=== PATIENT | female | born 1995 | race Caucasian/White ===

== ENCOUNTER → 2018-12-10 | Outpatient (CLI) | payer BC | END | disposition home or self-care (01) | LOC: MERGE 07:58 → LABWHC1 07:58 | PROVIDERS: ATTEND Obstetrics & Gynecology Reproductive Endocrinology | DX: Z32.00 Encounter for pregnancy test, result unknown (principal) | CPT/HCPCS: 36415; 84702 ==

== ENCOUNTER → 2019-01-10 | Outpatient (CLI) | payer BC | END | disposition home or self-care (01) | LOC: LABWHC1 07:26 | PROVIDERS: ATTEND Obstetrics & Gynecology Reproductive Endocrinology | DX: N97.9 Female infertility, unspecified (principal) | CPT/HCPCS: 36415; 84144 ==

== ENCOUNTER → 2019-01-17 | Outpatient (CLI) | payer BC | END | disposition home or self-care (01) | LOC: LABWHC1 07:50 | PROVIDERS: ATTEND Obstetrics & Gynecology Reproductive Endocrinology | DX: Z32.00 Encounter for pregnancy test, result unknown (principal) | CPT/HCPCS: 36415; 84702 ==

== ENCOUNTER → 2019-02-05 | Outpatient (CLI) | payer BC | END | disposition home or self-care (01) | LOC: LABWHC1 08:40 | PROVIDERS: ATTEND Obstetrics & Gynecology Reproductive Endocrinology | DX: N97.9 Female infertility, unspecified (principal) | CPT/HCPCS: 36415; 84144 ==

== ENCOUNTER → 2019-02-12 | Outpatient (CLI) | payer BC | END | disposition home or self-care (01) | LOC: LABWHC1 08:43 | PROVIDERS: ATTEND Obstetrics & Gynecology Reproductive Endocrinology | DX: Z32.00 Encounter for pregnancy test, result unknown (principal) | CPT/HCPCS: 36415; 84702 ==

== ENCOUNTER → 2019-04-04 | Outpatient (CLI) | payer BC | END | disposition home or self-care (01) | LOC: LABWHC1 11:02 | PROVIDERS: ATTEND Obstetrics & Gynecology Reproductive Endocrinology | DX: Z32.00 Encounter for pregnancy test, result unknown (principal) | CPT/HCPCS: 36415; 84702 ==

== ENCOUNTER → 2019-05-05 | Outpatient (CLI) | payer BC | END | disposition home or self-care (01) | LOC: LABWHC1 11:18 | PROVIDERS: ATTEND Obstetrics & Gynecology Reproductive Endocrinology | DX: N97.9 Female infertility, unspecified (principal) | CPT/HCPCS: 36415; 84144 ==

== ENCOUNTER → 2019-05-12 | Outpatient (CLI) | payer BC | END | disposition home or self-care (01) | LOC: LABWHC1 13:10 | PROVIDERS: ATTEND Obstetrics & Gynecology Reproductive Endocrinology | DX: Z32.00 Encounter for pregnancy test, result unknown (principal) | CPT/HCPCS: 36415; 84702 ==

== ENCOUNTER → 2019-06-15 | Outpatient (CLI) | payer BC | END | disposition home or self-care (01) | LOC: LABWHC1 13:57 | PROVIDERS: ATTEND Obstetrics & Gynecology Reproductive Endocrinology | DX: Z32.00 Encounter for pregnancy test, result unknown (principal) | CPT/HCPCS: 36415; 84702 ==

== ENCOUNTER → 2019-07-05 | Outpatient (CLI) | payer BC | END | disposition home or self-care (01) | LOC: LABWHC1 09:50 | PROVIDERS: ATTEND Obstetrics & Gynecology Reproductive Endocrinology | DX: Z32.00 Encounter for pregnancy test, result unknown (principal) | CPT/HCPCS: 36415; 84702 ==

== ENCOUNTER → 2019-07-27 | Outpatient (CLI) | payer BC | END | disposition home or self-care (01) | LOC: LABWHC1 15:07 | PROVIDERS: ATTEND Obstetrics & Gynecology Reproductive Endocrinology | DX: N97.9 Female infertility, unspecified (principal) | CPT/HCPCS: 36415; 84144 ==

== ENCOUNTER → 2019-08-03 | Outpatient (CLI) | payer BC | END | disposition home or self-care (01) | LOC: LABWHC1 12:00 | PROVIDERS: ATTEND Obstetrics & Gynecology Reproductive Endocrinology | DX: Z32.00 Encounter for pregnancy test, result unknown (principal) | CPT/HCPCS: 36415; 84702 ==

== ENCOUNTER → 2019-08-26 | Outpatient (CLI) | payer BC | END | disposition home or self-care (01) | LOC: LABWHC1 11:39 | PROVIDERS: ATTEND Obstetrics & Gynecology Reproductive Endocrinology | DX: N97.9 Female infertility, unspecified (principal) | CPT/HCPCS: 36415; 84144 ==

== ENCOUNTER → 2019-09-02 | Outpatient (CLI) | payer BC | END | disposition home or self-care (01) | LOC: LABWHC1 06:54 | PROVIDERS: ATTEND Obstetrics & Gynecology Reproductive Endocrinology | DX: Z32.00 Encounter for pregnancy test, result unknown (principal) | CPT/HCPCS: 36415; 84702 ==

== ENCOUNTER → 2019-10-03 | Outpatient (CLI) | payer BC | END | disposition home or self-care (01) | LOC: LABWHC1 12:14 | PROVIDERS: ATTEND Obstetrics & Gynecology Reproductive Endocrinology | DX: Z32.00 Encounter for pregnancy test, result unknown (principal) | CPT/HCPCS: 36415; 84702 ==

== ENCOUNTER → 2019-10-31 | Outpatient (CLI) | payer BC | END | disposition home or self-care (01) | LOC: LABWHC1 14:52 | PROVIDERS: ATTEND Obstetrics & Gynecology Reproductive Endocrinology | DX: N97.9 Female infertility, unspecified (principal) | CPT/HCPCS: 36415; 84144; 84443 ==

== ENCOUNTER → 2019-11-08 | Outpatient (CLI) | payer BC ==
[2019-11-08 08:46] LABS: HCG,Quantitative Serum <2.4 mIU/mL
== END | disposition home or self-care (01) ==
LOC: LABWHC1 07:52
PROVIDERS: ATTEND Obstetrics & Gynecology Reproductive Endocrinology
DX: Z32.00 Encounter for pregnancy test, result unknown (principal); N92.6 Irregular menstruation, unspecified
CPT/HCPCS: 36415; 84146; 84443; 84702

== ENCOUNTER → 2019-12-07 | Outpatient (CLI) | payer BC | END | disposition home or self-care (01) | LOC: LABWHC1 13:00 | PROVIDERS: ATTEND Obstetrics & Gynecology Reproductive Endocrinology | DX: E03.9 Hypothyroidism, unspecified (principal) | CPT/HCPCS: 36415; 84443 ==

== ENCOUNTER → 2020-01-09 | Outpatient (CLI) | payer BC | END | disposition home or self-care (01) | LOC: LABWHC1 09:57 | PROVIDERS: ATTEND Obstetrics & Gynecology Reproductive Endocrinology | DX: E03.9 Hypothyroidism, unspecified (principal) | CPT/HCPCS: 36415; 84443 ==

== ENCOUNTER → 2020-01-23 | Outpatient (CLI) | payer BC | END | disposition home or self-care (01) | LOC: LABWHC1 09:23 | PROVIDERS: ATTEND Obstetrics & Gynecology Reproductive Endocrinology | DX: E03.9 Hypothyroidism, unspecified (principal) | CPT/HCPCS: 36415; 84443 ==

== ENCOUNTER → 2020-01-30 | Outpatient (CLI) | payer BC | END | disposition home or self-care (01) | LOC: LABWHC1 11:12 | PROVIDERS: ATTEND Obstetrics & Gynecology Reproductive Endocrinology | DX: E03.9 Hypothyroidism, unspecified (principal) | CPT/HCPCS: 36415; 84443 ==

== ENCOUNTER → 2020-03-06 | Outpatient (CLI) | payer BC | END | disposition home or self-care (01) | LOC: LABWHC1 09:31 | PROVIDERS: ATTEND Obstetrics & Gynecology Reproductive Endocrinology | DX: E03.9 Hypothyroidism, unspecified (principal) | CPT/HCPCS: 36415; 84443 ==

== ENCOUNTER → 2020-04-05 | Outpatient (CLI) | payer BC ==
[2020-04-06 01:04] LABS: Thyroid Peroxidase Antibodies 34.4 U/mL (0.0-60.0)
[2020-04-06 01:05] LABS: Prolactin 11.6 ng/mL (2.8-29.2)
== END | disposition home or self-care (01) ==
LOC: LABWHC1 14:19
PROVIDERS: ATTEND Internal Medicine Endocrinology, Diabetes & Metabolism
DX: E03.8 Other specified hypothyroidism (principal)
CPT/HCPCS: 36415; 84146; 84439; 84443; 84480; 86376

== ENCOUNTER → 2020-05-16 | Outpatient (CLI) | payer BC ==
--- NOTE | 2020-05-16 09:00 | US ---
EXAMINATION TYPE: US thyroid st tissue head/neck DATE OF EXAM: 05/16/2020 COMPARISON: None CLINICAL HISTORY: 25-year-old female E03.8 Other specified hypothyroidism,R94.6 with abnormal labs TECHNIQUE: Multiple sonographic images of the thyroid gland are obtained. FINDINGS: GLAND SIZE: Right Lobe: 4.0 x 1.5 x 1.4 cm Overall Parenchyma: homogenous Left Lobe: 3.9 x 1.2 x 1.0 cm Overall Parenchyma: homogeneous Isthmus Thickness: 0.4 cm NODULES RIGHT: # of nodules measured on right: 0 LEFT: # of nodules measured on left: 0 ISTHMUS: # of nodules measured in the isthmus: 0 Bilateral neck scanned, no evidence of lymphadenopathy. IMPRESSION: Normal homogeneous appearance to the thyroid gland. Measurements as above. No discrete nodule.
== END | disposition home or self-care (01) ==
LOC: RADUSWWP 07:00
PROVIDERS: ATTEND Internal Medicine Endocrinology, Diabetes & Metabolism
DX: E03.8 Other specified hypothyroidism (principal)
CPT/HCPCS: 76536

== ENCOUNTER → 2020-05-16 | Outpatient (CLI) | payer BC ==
--- NOTE | 2020-05-17 14:52 | NM ---
EXAMINATION TYPE: NM thyroid image w uptake DATE OF EXAM: 05/17/2020 COMPARISON: Thyroid ultrasound 05/16/2020 HISTORY: Hypothyroidism TECHNIQUE: Thyroid iodine uptake is calculated and images performed after the oral administration of 302 uCi 1-123 Capsule. FINDINGS: There is normal distribution of activity throughout the gland. The 4 hour iodine uptake is calculated at 11% (normal range 8-14%). The 24-hour iodine uptake is calculated at 22% (normal range 15-35%). IMPRESSION: Normal thyroid scan and uptake.
== END | disposition home or self-care (01) ==
LOC: RADNMMAIN 07:17
PROVIDERS: ATTEND Internal Medicine Endocrinology, Diabetes & Metabolism
DX: R94.6 Abnormal results of thyroid function studies (principal); E03.8 Other specified hypothyroidism
CPT/HCPCS: 78014; A9516

== ENCOUNTER → 2020-06-06 | Outpatient (CLI) | payer BC ==
[2020-06-07 11:42] LABS: T4, Free (Free Thyroxine) 1.1 ng/dL (0.80-1.80)
== END | disposition home or self-care (01) ==
LOC: LABWHC1 14:05
PROVIDERS: ATTEND Internal Medicine Endocrinology, Diabetes & Metabolism
DX: E03.8 Other specified hypothyroidism (principal)
CPT/HCPCS: 36415; 84439; 84443; 84445; 84480

== ENCOUNTER 2020-08-22 10:02 | Emergency (ER) | payer BC ==
[2020-08-22 10:08] VITALS: BP 120/79; PULSE 92; RESP 18; TEMP 97.9
--- NOTE | 2020-08-22 10:21 | ED ---
URI HPI - General Chief Complaint: Upper Respiratory Infection Stated Complaint: cough/sore throat Time Seen by Provider: 08/22/20 10:09 Source: patient Mode of arrival: ambulatory Limitations: no limitations - History of Present Illness Initial Comments: 25-year-old female presented for chief complaint of wanting covid test Patient states she has had a cough at night and sore throat. She states her similar symptoms. Patient states she is concerned of Ildefonso. She denies any chest pain shortness of breath like swelling she denies . She denies working at the health care. Patient denies additional complaints she states she only wants the test remaining review of system negative - Related Data Home Medications Medication Instructions Recorded Confirmed No Known Home Medications 08/22/20 08/22/20 Allergies Allergy/AdvReac Type Severity Reaction Status Date / Time No Known Allergies Allergy Verified 08/22/20 10:21 Review of Systems ROS Statement: Those systems with pertinent positive or pertinent negative responses have been documented in the HPI. ROS Other: All systems not noted in ROS Statement are negative. Past Medical History Past Medical History: No Reported History History of Any Multi-Drug Resistant Organisms: None Reported Past Surgical History: No Surgical Hx Reported Past Psychological History: No Psychological Hx Reported Smoking Status: Never smoker Past Alcohol Use History: None Reported Past Drug Use History: None Reported General Exam - General Exam Comments Initial Comments: General: The patient is awake and alert, in no distress, and does not appear acutely ill. Eye: +3 mm pupils are equal, round and reactive to light, extra-ocular movements are intact. No nystagmus. There is normal conjunctiva bilaterally. No signs of icterus. Ears, nose, mouth and throat: There are moist mucous membranes and no oral lesions. Neck: The neck is supple, there is no tenderness or JVD. Cardiovascular: There is a regular rate and rhythm. No murmur, rub or gallop is appreciated. Respiratory: Lungs are clear to auscultation, respirations are non-labored, breath sounds are equal. No wheezes, stridor, rales, or rhonchi. Musculoskeletal: Normal ROM, no tenderness. Strength 5/5. Sensation intact. Radial pulses equal bilaterally 2+. Neurological: A&O x 3. CN II-XII intact grossly, There are no obvious motor or sensory deficits. Coordination appears grossly intact. Speech is normal. Skin: Skin is warm and dry and no rashes or lesions are noted. Psychiatric: Cooperative, appropriate mood & affect, normal judgment. Limitations: no limitations Course Vital Signs 08/22/20 10:04 Temperature 97.9 F Pulse Rate 92 Respiratory 18 Rate Blood Pressure 120/79 O2 Sat by Pulse 99 Oximetry Medical Decision Making - Medical Decision Making 25yo female presenting for cc of covid testing. admits to cough sore throat. Lungs clear. refused cxr. denies or hx of immunecompromise. Patient is agreeable to care plan and discharge.Dr Jones agreeable to care plan. Disposition Clinical Impression: Cough, Sore throat Disposition: HOME SELF-CARE Condition: Good Instructions (If sedation given, give patient instructions): Upper Respiratory Infection (ED) Additional Instructions: Please use medication as discussed. Please follow-up with family doctor in the next 2 days. Please return to emergency room if the symptoms increase or worsen or for any other concerns. Is patient prescribed a controlled substance at d/c from ED?: No Referrals: Bolivar Leal DO [Primary Care Provider] - 1-2 days Time of Disposition: 10:20
== END 2020-08-22 10:30 | disposition home or self-care (01) ==
LOC: EC 10:02
DX: J02.9 Acute pharyngitis, unspecified (principal); Z20.828 Contact with and (suspected) exposure to other viral communicable diseases
CPT/HCPCS: 99283; U0003

== ENCOUNTER 2021-05-24 04:20 | Observation (INO) | payer BC ==
[2021-05-24] MEDS ORDERED: SODIUM CHLORIDE 0.9% 1,000 ML IV STA ×2 (04:35→05:54)
--- NOTE | 2021-05-24 04:40 | ED ---
Chest Pain HPI - General Chief Complaint: Chest Pain Stated Complaint: Chest Pain Time Seen by Provider: 05/24/21 04:23 Source: patient, RN notes reviewed, old records reviewed Mode of arrival: ambulatory Limitations: no limitations - History of Present Illness Initial Comments: This is a 18-year-old female to the ER for evaluation patient coming in for evaluation of chest pain. Patient does have anterior severe chest pain and tightness with no recent travel history or sick contacts. Patient is up-to-date on her covert vaccine. No recent fevers felt fine yesterday she woke tonight with severe symptoms of elevated heart rate and tightness in her chest. No recent diarrheal illnesses no nausea vomiting. No drugs or alcohol patient is no medical history and takes no medications MD Complaint: chest pain -: minutes(s) Onset: awoke with symptoms Pain Location: substernal, left chest Pain Radiation: none Severity: severe Severity scale (1-10): 9 Quality: tightness, sharp Consistency: constant Improves With: nothing Worsens With: nothing Context: new medications (COVID vaccine) Other Symptoms: rash, palpitations Treatments Prior to Arrival: none - Related Data Home Medications Medication Instructions Recorded Confirmed No Known Home Medications 08/22/20 05/24/21 Allergies Allergy/AdvReac Type Severity Reaction Status Date / Time No Known Allergies Allergy Verified 05/24/21 07:09 Review of Systems ROS Statement: Those systems with pertinent positive or pertinent negative responses have been documented in the HPI. ROS Other: All systems not noted in ROS Statement are negative. EKG Findings - EKG Comments: EKG Findings:: EKG is sinus tachycardia 127 PA 120 QRS 74 QTc 575 Past Medical History Past Medical History: No Reported History History of Any Multi-Drug Resistant Organisms: None Reported Past Surgical History: No Surgical Hx Reported Past Psychological History: No Psychological Hx Reported Smoking Status: Never smoker Past Alcohol Use History: None Reported Past Drug Use History: None Reported General Exam Limitations: no limitations General appearance: alert, in no apparent distress Head exam: Present: atraumatic, normocephalic, normal inspection Eye exam: Present: normal appearance, PERRL, EOMI. Absent: scleral icterus, conjunctival injection, periorbital swelling ENT exam: Present: normal exam, mucous membranes moist Neck exam: Present: normal inspection. Absent: tenderness, meningismus, lymphad enopathy Respiratory exam: Present: normal lung sounds bilaterally. Absent: respiratory distress, wheezes, rales, rhonchi, stridor Cardiovascular Exam: Present: normal rhythm, tachycardia, normal heart sounds. Absent: systolic murmur, diastolic murmur, rubs, gallop, clicks GI/Abdominal exam: Present: soft, normal bowel sounds. Absent: distended, tenderness, guarding, rebound, rigid Extremities exam: Present: normal inspection, full ROM, normal capillary refill. Absent: tenderness, pedal edema, joint swelling, calf tenderness Back exam: Present: normal inspection Neurological exam: Present: alert, oriented X3, CN II-XII intact Psychiatric exam: Present: normal affect, normal mood Skin exam: Present: warm, dry, intact, normal color. Absent: rash Course Vital Signs 05/24/21 05/24/21 05/24/21 04:25 04:38 05:11 Temperature 98.3 F Pulse Rate 134 H 125 H Pulse Rate [ 120 H Shear Operator Automatic ] Respiratory 18 18 Rate Blood Pressure 130/80 124/81 O2 Sat by Pulse 98 98 Oximetry 05/24/21 06:05 Temperature Pulse Rate 117 H Pulse Rate [ Shear Operator Automatic ] Respiratory 18 Rate Blood Pressure 115/74 O2 Sat by Pulse 100 Oximetry - Reevaluation(s) Reevaluation #1: 05/24/21 04:44 Medical record is reviewed Reevaluation #2: 05/25/21 Patient symptoms are improved here in the emergency department Patient informed of results and questions answered Patient is in no acute distress Reevaluation #3: 05/25/21 Patient's QTc is do improve here in the emergency department heart rate - Consultations Consultation #1: Spoke with cardiology regarding significantly elevated QTC, no recommendations at this time Chest Pain MDM - MDM 26 female to the ER with severe tachycardia and prolonged QT, patient given magnesium and hydration therapy here in the ER, as well as replacement of potassium, patient will be admitted for cardiology evaluation Critical Care Time Critical Care Time: Yes Total Critical Care Time: 65 Disposition Clinical Impression: Chest pain, Prolonged QT interval, Tachycardia, Leukocytosis, Dehydration Disposition: ADMITTED IP TO THIS [facility] Condition: Serious Is patient prescribed a controlled substance at d/c from ED?: No
[2021-05-24] MEDS ORDERED: METOPROLOL TARTRATE 5 MG/5 ML VIAL IVP STA (04:58)
[2021-05-24] MEDS: MAGNESIUM SULFATE-D5W PMX 1 GM in DEXTROSE/WATER 1 100ML.BAG IVPB SCH ×2 (05:07→06:05)
[2021-05-24 05:08] LABS: Basophils # (A) 0.1 k/uL (0-0.2); Basophils % (A) 0 %; Eosinophils # (A) 0.2 k/uL (0-0.7); Eosinophils % (A) 1 %; HCT 40.2 % (34.0-46.0); HGB 13.6 gm/dL (11.4-16.0); Lymphocytes # (A) 0.9 k/uL (1.0-4.8); Lymphocytes % (A) 4 %; MCH 30.9 pg (25.0-35.0); MCHC 33.8 g/dL (31.0-37.0); MCV 91.5 fL (80.0-100.0); Monocytes # (A) 0.9 k/uL (0-1.0); Monocytes % (A) 4 %; Neutrophils # (A) 20.9 k/uL (1.3-7.7); Neutrophils % (A) 91 %; Platelet Count 259 k/uL (150-450); RBC 4.39 m/uL (3.80-5.40); RDW 11.9 % (11.5-15.5)
[2021-05-24 05:19] LABS: Appearance,Urine Clear (Clear); Bilirubin,Urine Negative (Negative); Blood,Urine Moderate (Negative); Color,Urine Yellow; Glucose,Urine (UA) Negative (Negative); Hyaline Casts,Urine 1 /lpf (0-2); Ketones,Urine 4+ (Negative); Leukocyte Esterase,Urine Negative (Negative); Mucus,Urine Occasional /hpf; Nitrite,Urine Negative (Negative); PH, Urine 5.5 (5.0-8.0); Protein,Urine Trace (Negative); RBC,Urine 8 /hpf (0-5); Specific Gravity,Urine 1.026 (1.001-1.035); Urobilinogen,Urine <2.0 mg/dL (<2.0); WBC,Urine 5 /hpf (0-5)
[2021-05-24 05:32] LABS: Partial Thromboplastin Time 23.4 sec (22.0-30.0); Prothrombin Time 10.5 sec (9.0-12.0)
[2021-05-24 05:34] LABS: ALT 11 U/L (4-34); AST 23 U/L (14-36); African American GFR (CKD) >90 (>60 ml/min/1.73 sqM); Albumin 4.8 g/dL (3.5-5.0); Alkaline Phosphatase 51 U/L (38-126); Anion Gap 13 mmol/L; Blood Urea Nitrogen 16 mg/dL (7-17); C Reactive Protein 1.7 mg/dL (<1.0); Calcium 9.7 mg/dL (8.4-10.2); Carbon Dioxide 22 mmol/L (22-30); Chloride 100 mmol/L (98-107); Creatine Kinase 55 U/L (30-135); Glucose 113 mg/dL (74-99); LDH 411 U/L (313-618); Magnesium 1.7 mg/dL (1.6-2.3); Non-African American GFR(CKD) >90 (>60 ml/min/1.73 sqM); Phosphorus 3.2 mg/dL (2.5-4.5); Potassium 3.7 mmol/L (3.5-5.1); Sodium 135 mmol/L (137-145); Total Bilirubin 0.9 mg/dL (0.2-1.3); Total Protein 7.6 g/dL (6.3-8.2)
[2021-05-24] MEDS ORDERED: POTASSIUM BICARBONATE/CIT AC 20 MEQ TABLET.EFF PO ONE (05:42)
[2021-05-24 05:45] LABS: Amphetamine Screen,Urine Not Detected (NotDetected); Barbiturate Screen,Urine Not Detected (NotDetected); Benzodiazepines Screen,Urine Not Detected (NotDetected); Cocaine Screen,Urine Not Detected (NotDetected); Methadone Screen, Urine Not Detected (NotDetected); Opiate Screen,Urine Not Detected (NotDetected); Oxycodone Screen, Urine Not Detected (NotDetected); Phencyclidine Screen,Urine Not Detected (NotDetected); Tricyclic Antidepressant,Urine Not Detected (NotDetected); Urn Cannabinoid Scrn Not Detected (NotDetected)
[2021-05-24] MEDS ORDERED: MAGNESIUM OXIDE 400 MG TAB PO STA (05:54)
--- NOTE | 2021-05-24 07:00 | CT ---
EXAMINATION TYPE: CT angio chest DATE OF EXAM: 05/24/2021 5:59 AM COMPARISON: None HISTORY: SOB and chest pain. CT DLP: 288.4 mGycm Automated exposure control for dose reduction was used. CONTRAST: CTA scan of the thorax is performed with IV Contrast, patient injected with 70 mL of Isovue 370, pulm onary embolism protocol. MIP images are created and reviewed. FINDINGS: LUNGS: Some respiratory motion artifact degradation. Mild left basilar linear atelectasis and/or scar ring. No suspicious focal groundglass opacity or consolidation. No pleural effusion or pneumothorax. MEDIASTINUM: There is satisfactory enhancement of the pulmonary artery and its branches, there is no CT evidence for pulmonary embolism. Satisfactory enhancement of the aorta without aneurysm or dissec tion. There are no greater than 1 cm hilar or mediastinal lymph nodes. No cardiomegaly or pericardi al effusion is seen. OTHER: No additional significant abnormality is seen. IMPRESSION: No CT evidence for acute pulmonary embolism. Patchy left basilar linear scarring and/or a telectasis otherwise lungs are clear.
[2021-05-24] MEDS: POTASSIUM CHLORIDE 10 MEQ in WATER FOR INJECTION 1 100ML.BAG IVPB SCH ×4 (09:46→16:57)
[2021-05-24] MEDS: SODIUM CHLORIDE 0.9% 1,000 ML IV SCH ×2 (09:49→16:56)
--- NOTE | 2021-05-24 10:40 | ECHOF ---
Referral Reason:CP MEASUREMENTS -------- HEIGHT: 162.6 cm WEIGHT: 73.5 kg BP: RVIDd: 2.4 cm (< 3.3) IVSd: 1.0 cm (0.6 - 1.1) LVIDd: 4.0 cm (3.9 - 5.3) LVPWd: 1.0 cm (0.6 - 1.1) IVSs: 1.2 cm LVIDs: 2.8 cm LVPWs: 1.2 cm LA Diam: 3.3 cm (2.7 - 3.8) LAESV Index (A-L): 25.55 ml/m Ao Diam: 2.6 cm (2.0 - 3.7) AV Cusp: 1.6 cm (1.5 - 2.6) MV EXCURSION: 20.954 mm (> 18.000) MV EF SLOPE: 81 mm/s (70 - 150) EPSS: 0.2 cm MV E Zi: 0.67 m/s MV DecT: 156 ms MV A Zi: 0.59 m/s MV E/A Ratio: 1.14 RAP: 5.00 mmHg RVSP: 21.84 mmHg FINDINGS -------- Sinus rhythm. This was a technically good study. LV size, wall thickness and systolic function are normal, with an EF greater than 55%. The left sade tricular size is normal. The right ventricle is normal in size. The left atrial size is normal. The right atrial size is normal. The aortic valve is trileaflet, and appears structurally normal. No aortic stenosis or regurgitation. There is trace mitral regurgitation. Mild tricuspid regurgitation present. Right ventricular systolic pressure is normal at < 35 mmHg. There is no pulmonic regurgitation present. There is no pericardial effusion. CONCLUSIONS -------- 1. LV size, wall thickness and systolic function are normal, with an EF greater than 55%. 2. The left ventricular size is normal. 3. The right ventricle is normal in size. 4. The left atrial size is normal. 5. The right atrial size is normal. 6. The aortic valve is trileaflet, and appears structurally normal. No aortic stenosis or regurgitati on. 7. There is trace mitral regurgitation. 8. Mild tricuspid regurgitation present. 9. There is no pericardial effusion. CELLULAR BIOLOGIST: Amy Waters RDCS
--- NOTE | 2021-05-24 11:07 | P.CRDCN ---
History of Present Illness History of present illness: HISTORY OF PRESENTING ILLNESS This is a pleasant 26-year-old female with no significant past medical history. We have been asked to see in consultation for long QT. She presented to the hospital with symptoms of shortness of breath and palpitations. She states she woke up suddenly in the middle of the night and felt like she could not take in a deep breath without causing pain in her chest. She felt as though her breathing was shallow due to this prompting her to come to the hospital for further evaluation. On arrival an EKG was obtained revealing sinus tachycardia heart rate of 127. QT is less than 400 ms despite the computer output's reading. She is seen and examined sitting up in bed in no acute distress. He states her palpitations have resolved. She has no active chest discomfort or shortness of breath. She is not coughing. She denies fever or chills at home. CTA is negative for pulmonary embolism with evidence of patchy left basilar linear scarring and/or atelectasis. Laboratory data reviewed, WBC 23, hemoglobin 13.6, platelets 259, d-dimer less than 0.17, sodium 135, potassium 3.7, magnesium 1.7, C-reactive protein 1.7 and TSH 1.1 and creatinine 0.62. Echocardiogram obtained reveals preserved LV systolic function with ejection fraction greater than 55%. REVIEW OF SYSTEMS At the time of my exam: CONSTITUTIONAL: Denies fever or chills. CARDIOVASCULAR: Denies chest pain, shortness of breath, orthopnea, PND or palpitations. RESPIRATORY: Denies cough. GASTROINTESTINAL: Denies abdominal pain, diarrhea, constipation, nausea or vomiting. MUSCULOSKELETAL: Denies myalgias. NEUROLOGIC: Denies numbness, tingling, headache or weakness. ENDOCRINE: Denies fatigue, weight change, polydipsia or polyurina. GENITOURINARY: Denies burning, hematuria or urgency with micturation. HEMATOLOGIC: Denies history of anemia or bleeding. PHYSICAL EXAMINATION Blood pressure 115/77 heart rate 104 afebrile and maintaining oxygen saturation on room air. CONSTITUTIONAL: No apparent distress. HEENT: Head is normocephalic. Pupils are equal, round. Sclerae anicteric. Mucous membranes of the mouth are moist. No JVD. No carotid bruit. CHEST EXAMINATION: Lungs are clear to auscultation. No chest wall tenderness is noted on palpation or with deep breathing. HEART EXAMINATION: Regular rate and rhythm. S1, S2 heard. No murmurs, gallops or rub. ABDOMEN: Soft, nontender. EXTREMITIES: 2+ peripheral pulses, no lower extremity edema and no calf tenderness. NEUROLOGIC EXAMINATION: Patient is awake, alert and oriented x3. ASSESSMENT Shortness of breath Sinus tachycardia Leukocytosis PLAN QT interval was manually calculated at less than 400 ms. Sinus tachycardia likely reactive to some sort of underlying infection with a white count of 23. Clinically stable from a cardiac perspective. Incidentally she does complain of palpitations intermittently in the past couple years. Recommend outpatient follow-up with Dr. Smith for further evaluation of possible underlying arrhythmia. No further cardiac workup at this time. Thank you kindly for this consultation. Nurse Practitioner note has been reviewed, I agree with a documented findings and plan of care. Patient was seen and examined. Past Medical History Past Medical History: No Reported History History of Any Multi-Drug Resistant Organisms: None Reported Past Surgical History: No Surgical Hx Reported Past Psychological History: No Psychological Hx Reported Smoking Status: Never smoker Past Alcohol Use History: None Reported Past Drug Use History: None Reported Medications and Allergies Home Medications Medication Instructions Recorded Confirmed Type No Known Home Medications 08/22/20 05/24/21 History Allergies Allergy/AdvReac Type Severity Reaction Status Date / Time No Known Allergies Allergy Verified 05/24/21 07:09 Physical Exam Vitals: Vital Signs Temp Pulse Pulse Resp BP Pulse Ox 05/24/21 07:02 98.5 F 103 H 18 116/80 100 05/24/21 06:05 117 H 18 115/74 100 05/24/21 05:11 125 H 18 124/81 98 05/24/21 04:38 120 H 05/24/21 04:25 98.3 F 134 H 18 130/80 98 Intake and Output 05/23/21 05/24/21 05/24/21 22:59 06:59 14:59 Other: Weight 73.482 kg Results 05/24/21 04:49 05/24/21 04:49 Cardiac Enzymes 05/24/21 05/24/21 Range/Units 04:49 04:49 AST 23 (14-36) U/L Lactate Dehydrogenase 411 (313-618) U/L Troponin I <0.012 (0.000-0.034) ng/mL Coagulation 05/24/21 Range/Units 04:49 PT 10.5 (9.0-12.0) sec APTT 23.4 (22.0-30.0) sec CBC 05/24/21 Range/Units 04:49 WBC 23.0 H (3.8-10.6) k/uL RBC 4.39 (3.80-5.40) m/uL Hgb 13.6 (11.4-16.0) gm/dL Hct 40.2 (34.0-46.0) % Plt Count 259 (150-450) k/uL Comprehensive Metabolic Panel 05/24/21 Range/Units 04:49 Sodium 135 L (137-145) mmol/L Potassium 3.7 (3.5-5.1) mmol/L Chloride 100 (98-107) mmol/L Carbon Dioxide 22 (22-30) mmol/L BUN 16 (7-17) mg/dL Creatinine 0.62 (0.52-1.04) mg/dL Glucose 113 H (74-99) mg/dL Calcium 9.7 (8.4-10.2) mg/dL AST 23 (14-36) U/L ALT 11 (4-34) U/L Alkaline Phosphatase 51 (38-126) U/L Total Protein 7.6 (6.3-8.2) g/dL Albumin 4.8 (3.5-5.0) g/dL Current Medications Generic Name Dose Route Start Last Admin Trade Name Freq PRN Reason Stop Dose Admin Potassium Chloride 10 meq/ IV 100 mls @ 100 mls/hr 05/24/21 06:00 Solution IVPB 05/24/21 09:59 Q1HR THU Protocol Sodium Chloride 1,000 mls @ 100 mls/hr 05/24/21 06:45 Saline 0.9% IV .Q10H THU Intake and Output 05/23/21 05/24/21 05/24/21 22:59 06:59 14:59 Other: Weight 73.482 kg 05/24/21 04:49 05/24/21 04:49
[2021-05-24 13:34] LABS: Basophils # (A) 0.1 k/uL (0-0.2); Basophils % (A) 0 %; Eosinophils # (A) 0.1 k/uL (0-0.7); Eosinophils % (A) 1 %; HCT 39.6 % (34.0-46.0); HGB 12.9 gm/dL (11.4-16.0); Lymphocytes # (A) 1.5 k/uL (1.0-4.8); Lymphocytes % (A) 9 %; MCH 30.8 pg (25.0-35.0); MCHC 32.7 g/dL (31.0-37.0); MCV 94.1 fL (80.0-100.0); Mean Platelet Volume 7.3; Monocytes # (A) 0.6 k/uL (0-1.0); Monocytes % (A) 4 %; Neutrophils # (A) 14.5 k/uL (1.3-7.7); Neutrophils % (A) 86 %; Platelet Count 268 k/uL (150-450); RDW 12.5 % (11.5-15.5); WBC 16.9 k/uL (3.8-10.6)
[2021-05-24 13:42] LABS: Potassium 3.8 mmol/L (3.5-5.1)
[2021-05-24 14:00] LABS: C Reactive Protein 3.6 mg/dL (<1.0)
[2021-05-24 16:18] LABS: Chol/HDL Ratio 3.63
--- NOTE | 2021-05-24 18:11 | P.HPIM ---
History of Present Illness H&P Date: 05/24/21 Chief Complaint: Shortness of breath/palpitations 26-year-old female with no significant past medical history, presented to the hospital with symptoms of shortness of breath and palpitations. She states she woke up suddenly in the middle of the night and felt like she could not take in a deep breath without causing pain in her chest. She felt as though her breathing was shallow due to this prompting her to come to the hospital for further evaluation. On arrival an EKG was obtained revealing sinus tachycardia heart rate of 127. QT is less than 400 ms despite the computer output's reading. She is seen and examined sitting up in bed in no acute distress. He states her palpitations have resolved. She has no active chest discomfort or shortness of breath. She is not coughing. She denies fever or chills at home. CTA is negative for pulmonary embolism with evidence of patchy left basilar linear scarring and/or atelectasis. Laboratory data reviewed, WBC 23, hemoglobin 13.6, platelets 259, d-dimer less than 0.17, sodium 135, potassium 3.7, magnesium 1.7, C-reactive protein 1.7 and TSH 1.1 and creatinine 0.62. Echocardiogram obtained reveals preserved LV systolic function with ejection fraction greater than 55%. Review of Systems REVIEW OF SYSTEMS: CONSTITUTIONAL: No fever, no malaise, no fatigue. HEENT: No recent visual problems or hearing problems. Denied any sore throat. CARDIOVASCULAR: No chest pain, orthopnea, PND, no palpitations, no syncope. PULMONARY: No shortness of breath, no cough, no hemoptysis. GASTROINTESTINAL: No diarrhea, no nausea, no vomiting, no abdominal pain. NEUROLOGICAL: No headaches, no weakness, no numbness. HEMATOLOGICAL: Denies any bleeding or petechiae. GENITOURINARY: Denies any burning micturition, frequency, or urgency. MUSCULOSKELETAL/RHEUMATOLOGICAL: Denies any joint pain, swelling, or any muscle pain. ENDOCRINE: Denies any polyuria or polydipsia. The rest of the 14-point review of systems is negative. Past Medical History Past Medical History: No Reported History History of Any Multi-Drug Resistant Organisms: None Reported Past Surgical History: No Surgical Hx Reported Past Psychological History: No Psychological Hx Reported Smoking Status: Never smoker Past Alcohol Use History: None Reported Past Drug Use History: None Reported Medications and Allergies Home Medications Medication Instructions Recorded Confirmed Type No Known Home Medications 08/22/20 05/24/21 History Allergies Allergy/AdvReac Type Severity Reaction Status Date / Time No Known Allergies Allergy Verified 05/24/21 07:09 Physical Exam Vitals: Vital Signs Temp Pulse Pulse Resp BP BP Pulse Ox 05/24/21 08:00 98.2 F 104 H 18 115/77 97 05/24/21 07:45 97 05/24/21 07:02 98.5 F 103 H 18 116/80 100 05/24/21 06:05 117 H 18 115/74 100 05/24/21 05:11 125 H 18 124/81 98 05/24/21 04:38 120 H 05/24/21 04:25 98.3 F 134 H 18 130/80 98 Intake and Output 05/23/21 05/24/21 05/24/21 22:59 06:59 14:59 Other: Weight 73.482 kg CONSTITUTIONAL: No apparent distress. HEENT: Head is normocephalic. Pupils are equal, round. Sclerae anicteric. Mucous membranes of the mouth are moist. No JVD. No carotid bruit. CHEST EXAMINATION: Lungs are clear to auscultation. No chest wall tenderness is noted on palpation or with deep breathing. HEART EXAMINATION: Regular rate and rhythm. S1, S2 heard. No murmurs, gallops or rub. ABDOMEN: Soft, nontender. EXTREMITIES: 2+ peripheral pulses, no lower extremity edema and no calf tenderness. NEUROLOGIC EXAMINATION: Patient is awake, alert and oriented x3. Results CBC & Chem 7: 05/24/21 13:06 05/24/21 13:06 Labs: Abnormal Lab Results - Last 24 Hours (Table) 05/24/21 05/24/21 05/24/21 Range/Units 04:49 04:49 04:49 WBC 23.0 H (3.8-10.6) k/uL Neutrophils # 20.9 H (1.3-7.7) k/uL Lymphocytes # 0.9 L (1.0-4.8) k/uL Sodium 135 L (137-145) mmol/L Glucose 113 H (74-99) mg/dL C-Reactive Protein 1.7 H (<1.0) mg/dL Urine Protein Trace H (Negative) Urine Ketones 4+ H (Negative) Urine Blood Moderate H (Negative) Urine RBC 8 H (0-5) /hpf Urine Mucus Occasional H (None) /hpf Assessment and Plan Assessment: 1. Sinus tachycardia/shortness of breath - Patient was found to have elongated QT interval; which manually is calculated less than 400 and likely related to underlying infection - We will continue to monitor patient on telemetry; monitor and trend troponin - Cardiology on board and recommending 2-D echo and further sepsis workup - Patient will remain on classroom monitor 2. Marked leukocytosis/sepsis - We will order stat CBC, CRP and pro-calcitonin levels; order blood cultures - We will consult ID for further recommendations 3. Uncontrolled hypertension; blood pressure found to be elevated in ED; patient received 1 dose of IV metoprolol; we will monitor blood pressure closely and make further recommendations as needed DVT prophylaxis; SCDs CODE STATUS; full code
[2021-05-24] MEDS: AMPICILLIN-SULBACTAM 3 GM in SODIUM CHLORIDE 0.9% 100 ML IVPB SCH ×2 (18:24→23:59)
--- NOTE | 2021-05-25 00:11 | P.CONS ---
History of Present Illness - Reason for Consult Consult date: 05/24/21 leukocytosis Requesting physician: Irma Vee - Chief Complaint difficulty breathing x 1 day - History of Present Illness History of present illness : Patient is 26-year-old female presenting to the ER with a chief complaints of increasing shortness of breath difficulty breathing the glucometer this morning patient denies having any chest pain patient did have minimal cough but no sputum production patient has felt nauseated but no vomiting patient denies any abdominal pain and no diarrhea with the symptom the patient was evaluated by the ER physician on arrival to the ER the patient was afebrile she was tachycardic satting 94 to 100% on room air patient did have white count of 23,000 with a left shift elevated 16.9 kidney function was normal liver enzymes are normal CRP mildly elevated urine was negative drug screen was negative CT angiogram was negative for PE did show some atelectasis patient was admitted to the hospital ID was consulted because of her elevated white count and is in for possible sepsis Review of system: CONSTITUTIONAL: Denies any fever or chills. EYES: No complaint. ENT: No complaint. RESPIRATORY: As per history of present illness. CARDIOVASCULAR: No complaint. GENITOURINARY: No complaint. GASTROINTESTINAL: No complaint. MUSCULOSKELETAL: No complaint. INTEGUMENTARY: No complaint. PSYCHOLOGIC: No complaint. ENDOCRINE: No complaint. NEUROLOGIC: No complaint. Past medical history : Reviewed, documented below Past surgical history : Reviewed, documented below Social history: Reviewed, documented below Medications: Reviewed, as documented below GENERAL DESCRIPTION: Middle-aged female up in the chair, no distress. No tachypnea or accessory muscle of respiration use. HEENT: Shows Pallor , no scleral icterus. Oral mucous membrane is dry. NECK: Trachea central, no thyromegaly. LUNGS: Unlabored breathing. Clear to auscultation anteriorly. No wheeze or crackle. HEART: S1, S2, regular rate and rhythm. ABDOMEN: Soft, no tenderness , guarding or rigidity EXTREMITIES: No edema of feet. SKIN: No rash, no masses palpable. NEUROLOGICAL: The patient is awake, alert, oriented x3, mood and affect normal. LABS AND RADIOLOGY: Reviewed results see below Assessment : Patient with elevated white count in this patient presented to hospital with increasing shortness of breath that started suddenly and woke her up from sleep in this patient did not have any fever CT angiogram was negative for PE and did not show any significant pneumonia in the patient urine is negative abdominal soft of examination and no evidence of any cellulitis Plan: 1-we will obtain ultrasound of the abdomen to rule out any intra-abdominal pathology especially with symptoms of nausea 2-empirically add Unasyn 3 g every 6 hours while waiting for the culture to finalize 3-IV fluid We will follow on clinical condition and cultures to further adjust medication if needed Thank you for this consultation we will follow the patient along with you Past Medical History Past Medical History: No Reported History History of Any Multi-Drug Resistant Organisms: None Reported Past Surgical History: No Surgical Hx Reported Past Psychological History: No Psychological Hx Reported Smoking Status: Never smoker Past Alcohol Use History: None Reported Past Drug Use History: None Reported Medications and Allergies Home Medications Medication Instructions Recorded Confirmed Type No Known Home Medications 08/22/20 05/24/21 History Allergies Allergy/AdvReac Type Severity Reaction Status Date / Time No Known Allergies Allergy Verified 05/24/21 07:09 Physical Exam Vitals: Vital Signs Temp Pulse Pulse Resp BP BP Pulse Ox 05/24/21 12:00 98.0 F 93 16 109/69 96 05/24/21 08:00 98.2 F 104 H 18 115/77 97 05/24/21 07:45 97 05/24/21 07:02 98.5 F 103 H 18 116/80 100 05/24/21 06:05 117 H 18 115/74 100 05/24/21 05:11 125 H 18 124/81 98 05/24/21 04:38 120 H 05/24/21 04:25 98.3 F 134 H 18 130/80 98 Intake and Output 05/23/21 05/24/21 05/24/21 22:59 06:59 14:59 Intake Total 240 Balance 240 Intake: Oral 240 Other: Weight 73.482 kg Results CBC & Chem 7: 05/24/21 13:06 05/24/21 13:06 Labs: Abnormal Lab Results - Last 24 Hours (Table) 05/24/21 05/24/21 05/24/21 Range/Units 04:49 04:49 04:49 WBC 23.0 H (3.8-10.6) k/uL Neutrophils # 20.9 H (1.3-7.7) k/uL Lymphocytes # 0.9 L (1.0-4.8) k/uL Sodium 135 L (137-145) mmol/L Glucose 113 H (74-99) mg/dL C-Reactive Protein 1.7 H (<1.0) mg/dL Urine Protein Trace H (Negative) Urine Ketones 4+ H (Negative) Urine Blood Moderate H (Negative) Urine RBC 8 H (0-5) /hpf Urine Mucus Occasional H (None) /hpf 05/24/21 05/24/21 Range/Units 13:06 13:06 WBC 16.9 H (3.8-10.6) k/uL Neutrophils # 14.5 H (1.3-7.7) k/uL Lymphocytes # (1.0-4.8) k/uL Sodium (137-145) mmol/L Glucose (74-99) mg/dL C-Reactive Protein 3.6 H (<1.0) mg/dL Urine Protein (Negative) Urine Ketones (Negative) Urine Blood (Negative) Urine RBC (0-5) /hpf Urine Mucus (None) /hpf
[2021-05-25] MEDS: SODIUM CHLORIDE 0.9% 1,000 ML IV SCH ×2 (02:33→12:22)
[2021-05-25] MEDS: AMPICILLIN-SULBACTAM 3 GM in SODIUM CHLORIDE 0.9% 100 ML IVPB SCH ×2 (05:29→12:21)
--- NOTE | 2021-05-25 08:08 | US ---
EXAMINATION TYPE: US abdomen complete DATE OF EXAM: 05/25/2021 COMPARISON: NONE CLINICAL HISTORY: leukocytosis and nausea. Leukocytosis EXAM MEASUREMENTS: Liver Length: 14.7 cm Gallbladder Wall: 0.2 cm CBD: 0.4 cm Spleen: 14.2 cm Right Kidney: 12.0 x 3.7 x 4.5 cm Left Kidney: 11.7 x 5.7 x 4.6 cm Technical limitations due to large amount of overlying bowel content Pancreas: Obscured by bowel gas Liver: best seen intercostally, visualized portions appear wnl Gallbladder: no evidence of stones Evidence for sonographic Sosa's sign: no CBD: appears wnl Spleen: enlarged Right Kidney: no evidence of hydronephrosis Left Kidney: no evidence of hydronephrosis Upper IVC: Obscured by overlying bowel gas Abd Aorta: wnl The liver is homogenous. The intrahepatic portion of the IVC and proximal abdominal aorta are within normal limits. There is no evidence of cholelithiasis. Common bile duct is unremarkable. The visu alized portions of the pancreas are homogenous. The spleen is unremarkable. Kidneys are symmetric a nd free of hydronephrosis. No renal lesions are seen. IMPRESSION: Borderline splenomegaly. Normal sonographic appearance of the liver, gallbladder, kidneys and abdominal aorta. The pancreas was obscured by overlying bowel gas.
[2021-05-25] MEDS ORDERED: ASPIRIN 325 MG TAB PO SCH (09:00)
[2021-05-25 10:49] VITALS: RESP 17
[2021-05-25 11:50] LABS: HCT 37.9 % (34.0-46.0); HGB 12.8 gm/dL (11.4-16.0); Lymphocytes % (A) 23 %; MCH 31.9 pg (25.0-35.0); MCHC 33.8 g/dL (31.0-37.0); MCV 94.3 fL (80.0-100.0); Mean Platelet Volume 6.8; Monocytes % (A) 5 %; Neutrophils % (A) 70 %; Platelet Count 271 k/uL (150-450); RBC 4.01 m/uL (3.80-5.40); RDW 12.9 % (11.5-15.5); WBC 5.9 k/uL (3.8-10.6)
[2021-05-25 11:51] LABS: Basophils % (A) 1 %; Eosinophils # (A) 0.1 k/uL (0-0.7); Eosinophils % (A) 1 %; Lymphocytes # (A) 1.3 k/uL (1.0-4.8); Monocytes # (A) 0.3 k/uL (0-1.0); Neutrophils # (A) 4.1 k/uL (1.3-7.7)
[2021-05-25 12:14] LABS: African American GFR (CKD) >90 (>60 ml/min/1.73 sqM); Anion Gap 9 mmol/L; Blood Urea Nitrogen 8 mg/dL (7-17); C Reactive Protein 3.2 mg/dL (<1.0); Calcium 9.2 mg/dL (8.4-10.2); Carbon Dioxide 22 mmol/L (22-30); Chloride 108 mmol/L (98-107); Glucose 75 mg/dL (74-99); LDH 327 U/L (313-618); Non-African American GFR(CKD) >90 (>60 ml/min/1.73 sqM); Potassium 4.3 mmol/L (3.5-5.1); Sodium 139 mmol/L (137-145)
[2021-05-25 14:29] VITALS: BP 112/80; PULSE 65; TEMP 98.4
--- NOTE | 2021-05-25 15:52 | PN ---
PROGRESS NOTE DATE OF SERVICE: 05/25/2021 REASON FOR FOLLOWUP: Leukocytosis. INTERVAL HISTORY: The patient is afebrile. The patient is breathing comfortably. The patient denies having any chest pain, shortness of breath or cough. No abdominal pain. Did have one episode of loose stool today. PHYSICAL EXAMINATION: Blood pressure 112/80 with a pulse of 65, temperature 98.4. She is 99% on room air. GENERAL DESCRIPTION: General description is a middle-aged female up in the room in no distress. RESPIRATORY SYSTEM: Unlabored breathing. Clear to auscultation anteriorly. Respiratory system: Unlabored breathing and is clear to auscultation anteriorly. HEART: S1, S2. Regular rate and rhythm. ABDOMEN: Soft. No tenderness. LABS: Hemoglobin is 12.9, white count 5.9, BUN of 8, creatinine 0.55. Ultrasound with mild splenomegaly. DIAGNOSTIC IMPRESSION AND PLAN: Patient admitted to hospital with difficulty in breathing in this patient who did have elevated white count, which has subsequently normalized. CT angiogram was negative for any PE. No significant pneumonia. Mild splenomegaly on the ultrasound. Patient seems to be showing overall improvement on Unasyn. Make a short course of oral Augmentin on discharge with close outpatient followup. All questions and concerns were answered. MMODL / IJN: [id number] /
--- NOTE | 2021-05-28 06:19 | CDI ---
Documentation Clarification Form Date: 05/28/2021 06:05:00 AM From: Porsha Licea Admit Date: 05/24/2021 06:39:00 AM Patient Name: Sobeida Ibanez Visit Number: [id number] Discharge Date: 05/25/2021 04:57:00 PM ATTENTION: The Clinical Documentation Specialists (CDI) and [facility] Coding Staff appreciate your assistance in clarifying documentation. Please respond to the clarification below the line at the bottom and electronically sign. The CDI & [facility] Coding staff will review the response and follow-up if needed. Please note: Queries are made part of the Legal Health Record. If you have any questions, please contact the author of this message via ITS. Dr. Irma Vee The patients principal diagnosis the diagnosis that was chiefly responsible for the admission - has not been clearly identified and clarification is requested. Sepsis was documented in H and P. The patient presented with SOB, sinus tachycardia, hypertension, prolonged QT, dehydration. History/Risk factors:elevated WBC's, 23.0, with documented leukocytosis/sepsis Clinical Indicators: Lab findings: WBC 23.0 Radiology findings: patchy lt. basilar linear scarring, atelectasis Vital Signs: 98.3, 134 bpm, 18, 130/80 98 RA Treatment: Unasyn, IV fluids Consults: Cardiology and ID consult In your professional opinion, can you please clarify which diagnosis, after study, was the reason chiefly responsible for the admission? [ ] Sepsis [ ] chest pain [ ] Other, please specify [ ] Unable to determine sepsis MTDD
--- NOTE | 2021-06-04 13:01 | CDI ---
Documentation Clarification Form Date: 06/04/2021 12:32:00 PM From: Porsha Licea Admit Date: 05/24/2021 06:39:00 AM Patient Name: Sobeida Ibanez Visit Number: [id number] Discharge Date: 05/25/2021 04:57:00 PM ATTENTION: The Clinical Documentation Specialists (CDI) and [facility] Coding Staff appreciate your assistance in clarifying documentation. Please respond to the clarification below the line at the bottom and electronically sign. The CDI & [facility] Coding staff will review the response and follow-up if needed. Please note: Queries are made part of the Legal Health Record. If you have any questions, please contact the author of this message via ITS. Dr. Irma Vee Per your query response, patient has sepsis. Please clarify eitology of sepsis. The patient presented with tachycardia, and WBC's 23. Per cardiology consult, " Sinus Tachycardia likely reactive to some sort of underlying infection with white count of 23." Additional clarification regarding the etiology/cause of the sepsis. History/Risk Factors: elevated WBC's tachycardia, SOB Clinical Indicators: WBC: 23 Vitals signs: 98.3 F, 134 bpm, 18, 130/80, 98% RA Treatment: Unysyn and discharged on Augmentin ID Consult: Patient improved on Unasyn. Antibiotics: Unasyn In your professional opinion, please clarify if these findings signify source of infection: [ ] Source of infection known please specify [ ] Source of infection not known [ ] Other, please specify [ ] Unable to determine SIRS Criteria: 2 or more of the following may indicate SIRS -Temperature < 96.8F (36C) or > 101.0F (38.3C) -Heart Rate > 90 bpm -Respiratory Rate > 20 breaths/min or PaCO2 < 32 mmHg -White Blood Cell Count > 12,000 or < 4,000 cells/mm3 or > 10% bands source of infection not known MTDD
--- NOTE | 2021-06-23 21:06 | P.DS ---
Providers Date of admission: 05/24/21 06:39 Expected date of discharge: 05/25/21 Attending physician: Saima Gill Consults: 05/24/21 06:39 Consult Physician Urgent Consulting Provider: Rach Burleson Consult Reason/Comments: prolongedQT Do you want consulting provider notified?: Yes 05/24/21 12:21 Consult Physician Routine Consulting Provider: Marlene Samayoa Consult Reason/Comments: leukocytosis Do you want consulting provider notified?: Yes Primary care physician: [facility] Course: 26-year-old female with no significant past medical history, p resented to the hospital with symptoms of shortness of breath and palpitations. She states she woke up suddenly in the middle of the night and felt like she could not take in a deep breath without causing pain in her chest. She felt as though her breathing was shallow due to this prompting her to come to the hospital for further evaluation. On arrival an EKG was obtained revealing sinus tachycardia heart rate of 127. QT is less than 400 ms despite the computer output's reading. She is seen and examined sitting up in bed in no acute distress. He states her palpitations have resolved. She has no active chest discomfort or shortness of breath. She is not coughing. She denies fever or chills at home. CTA is negative for pulmonary embolism with evidence of patchy left basilar linear scarring and/or atelectasis. Laboratory data reviewed, WBC 23, hemoglobin 13.6, platelets 259, d-dimer less than 0.17, sodium 135, potassium 3.7, magnesium 1.7, C-reactive protein 1.7 and TSH 1.1 and creatinine 0.62. Echocardiogram obtained reveals preserved LV systolic function with ejection fraction greater than 55%. 1. Sinus tachycardia/shortness of breath - Patient was found to have elongated QT interval; which manually is calculated less than 400 and likely related to underlying infection - We will continue to monitor patient on telemetry; monitor and trend troponin - Cardiology on board and recommending 2-D echo and further sepsis workup - Patient will remain on desk monitor 2. Marked leukocytosis/sepsis - We will order stat CBC, CRP and pro-calcitonin levels; order blood cultures - We will consult ID for further recommendations 3. Uncontrolled hypertension; blood pressure found to be elevated in ED; patient received 1 dose of IV metoprolol; we will monitor blood pressure closely and make further recommendations as needed Infectious disease workup was unremarkable and patient was discharged in a stable condition Patient Condition at Discharge: Serious Plan - Discharge Summary Discharge Rx Participant: Yes New Discharge Prescriptions: New Amoxicillin/Potassium Clav [Augmentin 875-125 Tablet] 1 tab PO Q12HR 1 Days #14 tab Discharge Medication List Amoxicillin/Potassium Clav [Augmentin 875-125 Tablet] 1 tab PO Q12HR 1 Days #14 tab 05/25/21 [Rx] Follow up Appointment(s)/Referral(s): Hugh Yanez MD [STAFF PHYSICIAN] - 4 Weeks Bolivar Leal DO [Primary Care Provider] - 1-2 days Patient Instructions/Handouts: Chest Pain (GEN), Leukocytosis (DC) Discharge Disposition: HOME SELF-CARE
== END 2021-05-25 16:57 | disposition home or self-care (01) ==
LOC: EC 04:20 → INTOOBSV 06:39 → 3SCARD 06:39 → UNDODISIN 05-25 16:57
PROVIDERS: ADMIT Hospitalist; ATTEND Hospitalist
DX: A41.9 Sepsis, unspecified organism (principal); R94.31 Abnormal electrocardiogram [ECG] [EKG]; E86.0 Dehydration; I10 Essential (primary) hypertension; R21 Rash and other nonspecific skin eruption
CPT/HCPCS: 96361 ×3; 96366 ×2; 96367; 96365; 99291; 36415; 94760; 93005; 93306; 85379; 83880; 80061; 80053; 80048; 82550; 83615 ×2; 83735; 84100; 84132; 84443; 84484; 85025 ×2; 85610; 85730; 86140 ×2; 81001; 81025; 87040; 80306; 84145; 76700; 71275; G0378 ×2; J3475; J3480; J0295 ×2; Q9967; 96360

== ENCOUNTER → 2021-08-08 | Outpatient (CLI) | payer BC | END | disposition home or self-care (01) | LOC: LABWHC1 11:22 | PROVIDERS: ATTEND Obstetrics & Gynecology | DX: N92.6 Irregular menstruation, unspecified (principal); N97.9 Female infertility, unspecified | CPT/HCPCS: 36415; 82397; 84443; 84481 ==

== ENCOUNTER → 2022-05-03 | Outpatient (CLI) | payer BC ==
[2022-05-03 17:16] LABS: ALT 14 U/L (8-44); AST 19 U/L (13-35); African American GFR (CKD) 115.5 (60.0-200.0); Blood Urea Nitrogen 11.4 mg/dL (9.0-27.0); Glucose 89 mg/dL (70-110); Non-African American GFR(CKD) 99.6 (60.0-200.0)
[2022-05-03 17:24] LABS: Follicle Stimulating Hormone 4.8 mIU/mL
[2022-05-03 17:29] LABS: Thyroid Peroxidase Antibodies <9.0 U/mL (0.0-33.0)
[2022-05-03 17:35] LABS: Estradiol 19.7 pg/mL; HCG,Quantitative Serum <3.0 (0.0-6.0)
[2022-05-03 18:18] LABS: Insulin Level 8.9 mIU/mL (3.0-25.0)
== END | disposition home or self-care (01) ==
LOC: LABWHC1 08:58
PROVIDERS: ATTEND Obstetrics & Gynecology Reproductive Endocrinology
DX: N92.6 Irregular menstruation, unspecified (principal)
CPT/HCPCS: 36415; 82306; 82397; 82565; 82670; 82947; 83001; 83036; 83525; 84146; 84402; 84403; 84439; 84443; 84450; 84460; 84481; 84520; 84702; 86376; 86762; 86787; 86800; 86850; 86900; 86901

== ENCOUNTER → 2022-06-10 | Outpatient (CLI) | payer BC | END | disposition home or self-care (01) | LOC: LABWHC1 21:45 | PROVIDERS: ATTEND Obstetrics & Gynecology Reproductive Endocrinology | DX: N97.9 Female infertility, unspecified (principal) | CPT/HCPCS: 36415; 84144; 84702 ==

== ENCOUNTER → 2022-07-23 | Outpatient (CLI) | payer BC | END | disposition home or self-care (01) | LOC: LABWHC1 11:26 | PROVIDERS: ATTEND Obstetrics & Gynecology Reproductive Endocrinology | DX: Z32.00 Encounter for pregnancy test, result unknown (principal) | CPT/HCPCS: 36415; 84702 ==

== ENCOUNTER → 2022-08-15 | Outpatient (CLI) | payer BC | END | disposition home or self-care (01) | LOC: LABWHC1 09:49 | PROVIDERS: ATTEND Obstetrics & Gynecology Reproductive Endocrinology | DX: N97.9 Female infertility, unspecified (principal) | CPT/HCPCS: 36415; 84144 ==

== ENCOUNTER → 2022-08-22 | Outpatient (CLI) | payer BC | END | disposition home or self-care (01) | LOC: LABWHC1 09:47 | PROVIDERS: ATTEND Obstetrics & Gynecology Reproductive Endocrinology | DX: Z32.00 Encounter for pregnancy test, result unknown (principal) | CPT/HCPCS: 36415; 84702 ==

== ENCOUNTER → 2022-09-17 | Outpatient (CLI) | payer BC | END | disposition home or self-care (01) | LOC: LABWHC1 10:11 | PROVIDERS: ATTEND Obstetrics & Gynecology Reproductive Endocrinology | DX: N97.9 Female infertility, unspecified (principal) | CPT/HCPCS: 36415; 84144 ==

== ENCOUNTER → 2022-09-24 | Outpatient (CLI) | payer BC | END | disposition home or self-care (01) | LOC: LABWHC1 08:22 | PROVIDERS: ATTEND Obstetrics & Gynecology Reproductive Endocrinology | DX: Z32.00 Encounter for pregnancy test, result unknown (principal) | CPT/HCPCS: 36415; 84702 ==

== ENCOUNTER → 2022-09-26 | Outpatient (CLI) | payer BC | END | disposition home or self-care (01) | LOC: LABWHC1 07:00 | PROVIDERS: ATTEND Obstetrics & Gynecology Reproductive Endocrinology | DX: Z32.00 Encounter for pregnancy test, result unknown (principal) | CPT/HCPCS: 36415; 84702 ==

== ENCOUNTER → 2022-12-17 | Outpatient (CLI) | payer BC | END | disposition home or self-care (01) | LOC: LABWHC1 13:20 | PROVIDERS: ATTEND Obstetrics & Gynecology Reproductive Endocrinology | DX: Z32.00 Encounter for pregnancy test, result unknown (principal) | CPT/HCPCS: 36415; 84702 ==

== ENCOUNTER → 2023-03-06 | Outpatient (CLI) | payer BC | END | disposition home or self-care (01) | LOC: LABWHC1 15:50 | PROVIDERS: ATTEND Obstetrics & Gynecology Reproductive Endocrinology | DX: N97.9 Female infertility, unspecified (principal) | CPT/HCPCS: 36415; 84144; 84702; 86480 ==

== ENCOUNTER → 2023-04-14 | Outpatient (CLI) | payer BC | END | disposition home or self-care (01) | LOC: LABWHC1 10:15 | PROVIDERS: ATTEND Obstetrics & Gynecology Reproductive Endocrinology | DX: N97.9 Female infertility, unspecified (principal) | CPT/HCPCS: 36415; 84144 ==

== ENCOUNTER → 2023-04-21 | Outpatient (CLI) | payer BC | END | disposition home or self-care (01) | LOC: LABWHC1 09:29 | PROVIDERS: ATTEND Obstetrics & Gynecology Reproductive Endocrinology | DX: Z32.00 Encounter for pregnancy test, result unknown (principal) | CPT/HCPCS: 36415; 84702 ==

== ENCOUNTER → 2023-05-16 | Outpatient (CLI) | payer BC | END | disposition home or self-care (01) | LOC: LABWHC1 08:48 | PROVIDERS: ATTEND Obstetrics & Gynecology | DX: N97.9 Female infertility, unspecified (principal) | CPT/HCPCS: 36415; 84144 ==

== ENCOUNTER → 2023-05-23 | Outpatient (CLI) | payer BC | END | disposition home or self-care (01) | LOC: LABWHC1 09:15 | PROVIDERS: ATTEND Obstetrics & Gynecology Reproductive Endocrinology | DX: Z34.80 Encounter for supervision of other normal pregnancy, unspecified trimester (principal); Z3A.00 Weeks of gestation of pregnancy not specified | CPT/HCPCS: 36415; 84702 ==

== ENCOUNTER → 2023-12-19 | Outpatient (CLI) | payer BC | END | disposition home or self-care (01) | LOC: LABWHC1 08:20 | PROVIDERS: ATTEND Obstetrics & Gynecology Reproductive Endocrinology | DX: Z32.00 Encounter for pregnancy test, result unknown (principal) | CPT/HCPCS: 36415; 84144 ==

== ENCOUNTER → 2023-12-30 | Outpatient (CLI) | payer BC | END | disposition home or self-care (01) | LOC: LABWHC1 06:47 | PROVIDERS: ATTEND Obstetrics & Gynecology Reproductive Endocrinology | DX: Z32.00 Encounter for pregnancy test, result unknown (principal) | CPT/HCPCS: 36415; 84144; 84702 ==

== ENCOUNTER → 2024-01-25 | Outpatient (CLI) | payer BC | END | disposition home or self-care (01) | LOC: LABWHC1 06:47 | PROVIDERS: ATTEND Obstetrics & Gynecology | DX: Z52.810 Egg (Oocyte) donor under age 35, anonymous recipient (principal); Z32.00 Encounter for pregnancy test, result unknown; N97.8 Female infertility of other origin; O02.1 Missed abortion | CPT/HCPCS: 36415; 84144 ==

== ENCOUNTER → 2024-02-01 | Outpatient (CLI) | payer BC | END | disposition home or self-care (01) | LOC: LABWHC1 07:02 | PROVIDERS: ATTEND Obstetrics & Gynecology | DX: Z32.00 Encounter for pregnancy test, result unknown (principal) | CPT/HCPCS: 36415; 84144; 84702 ==

== ENCOUNTER → 2024-02-03 | Outpatient (CLI) | payer BC ==
[2024-02-03 08:32] LABS: HCG,Quantitative Serum 248.5 mIU/mL
== END | disposition home or self-care (01) ==
LOC: LABWHC1 06:51
PROVIDERS: ATTEND Obstetrics & Gynecology Reproductive Endocrinology
DX: Z34.81 Encounter for supervision of other normal pregnancy, first trimester (principal)
CPT/HCPCS: 36415; 84144; 84443; 84702

== ENCOUNTER 2024-09-22 22:18 | Observation (INO) | payer BC ==
[2024-09-22 23:18] LABS: Protein/Creatinine Ratio,Urine 0.467
[2024-09-22 23:31] LABS: Basophils % (A) 0 %; Eosinophils # (A) 0.1 k/uL (0-0.7); Eosinophils % (A) 1 %; HCT 32.8 % (34.0-46.0); HGB 11.3 gm/dL (11.4-16.0); Lymphocytes # (A) 1.4 k/uL (1.0-4.8); Lymphocytes % (A) 18 %; MCH 33.5 pg (25.0-35.0); MCHC 34.6 g/dL (31.0-37.0); MCV 96.8 fL (80.0-100.0); Mean Platelet Volume 7.1; Monocytes # (A) 0.5 k/uL (0-1.0); Monocytes % (A) 7 %; Neutrophils # (A) 5.3 k/uL (1.3-7.7); Neutrophils % (A) 72 %; Platelet Count 207 k/uL (150-450); RBC 3.38 m/uL (3.80-5.40); RDW 13.4 % (11.5-15.5); WBC 7.3 k/uL (3.8-10.6)
[2024-09-22 23:41] LABS: ALT 18 U/L (4-34); AST 29 U/L (14-36); African American GFR (CKD) >90 (>60 ml/min/1.73 sqM); Blood Urea Nitrogen 12 mg/dL (7-17); LDH 246 U/L (120-246); Non-African American GFR(CKD) >90 (>60 ml/min/1.73 sqM); Uric Acid 3.1 mg/dL (3.7-7.4)
[2024-09-22 23:50] LABS: INR 0.8 (<1.2); Prothrombin Time 9.7 sec (10.0-12.5)
[2024-09-23 00:59] LABS: Amorphous Sediment,Urine Occasional /hpf; Appearance,Urine Cloudy (Clear); Bacteria,Urine Moderate /hpf; Bilirubin,Urine Negative (Negative); Blood,Urine Small (Negative); Color,Urine Colorless; Glucose,Urine (UA) Negative (Negative); Ketones,Urine Negative (Negative); Leukocyte Esterase,Urine Small (Negative); Mucus,Urine Rare /hpf; Nitrite,Urine Negative (Negative); PH, Urine 6.5 (5.0-8.0); Protein,Urine Negative (Negative); RBC,Urine 7 /hpf (0-5); Squamous Epithelial Cell,Urine 6 /hpf (0-4); Urobilinogen,Urine <2.0 mg/dL (<2.0); WBC,Urine 5 /hpf (0-5)
[2024-09-23] MEDS ORDERED: LABETALOL 200 MG TAB PO PRN (02:13)
[2024-09-23 02:29] VITALS: TEMP 97.8
[2024-09-23 06:03] LABS: Appearance,Urine Clear (Clear); Bilirubin,Urine Negative (Negative); Blood,Urine Negative (Negative); Color,Urine Colorless; Glucose,Urine (UA) Negative (Negative); Ketones,Urine 2+ (Negative); Leukocyte Esterase,Urine Negative (Negative); Nitrite,Urine Negative (Negative); PH, Urine 6.5 (5.0-8.0); Protein,Urine Negative (Negative); Specific Gravity,Urine 1.012 (1.001-1.035); Urobilinogen,Urine <2.0 mg/dL (<2.0)
[2024-09-23 06:37] LABS: Creatinine,Urine Random 72.3 mg/dL; Protein/Creatinine Ratio,Urine 0.373
[2024-09-23 07:37] LABS: Basophils % (A) 0 %; Eosinophils # (A) 0.1 k/uL (0-0.7); Eosinophils % (A) 1 %; HCT 32.2 % (34.0-46.0); Lymphocytes # (A) 1.7 k/uL (1.0-4.8); Lymphocytes % (A) 21 %; MCH 33.2 pg (25.0-35.0); MCHC 34.1 g/dL (31.0-37.0); MCV 97.3 fL (80.0-100.0); Mean Platelet Volume 7.7; Monocytes # (A) 0.5 k/uL (0-1.0); Monocytes % (A) 6 %; Neutrophils # (A) 5.9 k/uL (1.3-7.7); Neutrophils % (A) 70 %; Platelet Count 178 k/uL (150-450); RBC 3.31 m/uL (3.80-5.40); RDW 13.4 % (11.5-15.5); WBC 8.4 k/uL (3.8-10.6)
[2024-09-23 07:49] LABS: INR 0.9 (<1.2); Prothrombin Time 9.9 sec (10.0-12.5)
[2024-09-23 08:02] LABS: ALT 14 U/L (4-34); AST 17 U/L (14-36); African American GFR (CKD) >90 (>60 ml/min/1.73 sqM); Blood Urea Nitrogen 10 mg/dL (7-17); LDH 119 U/L (120-246); Non-African American GFR(CKD) >90 (>60 ml/min/1.73 sqM); Uric Acid 3.2 mg/dL (3.7-7.4)
[2024-09-23] MEDS: ACETAMINOPHEN TAB 500 MG TAB PO PRN (08:21)
[2024-09-23 08:29] VITALS: BP 119/74; PULSE 93; RESP 14
--- NOTE | 2024-09-23 08:39 | P.HPOB ---
History of Present Illness H&P Date: 09/23/24 Chief Complaint: IUP at 37 and 5/7 weeks 29-year-old gravida2 P0010 at 37 and 5/7 weeks, patient presented last evening with complaints of elevated blood pressures at home. Patient's initial blood pressure 160s over 90s. Patient on follow-up blood pressures normalized. Christiano blanco did not necessitate any medical treatment for blood pressures in severe range. Patient does note a headache that is been there for about a week. Patient states she has been receiving routine care complicated by a single umbilical artery. She did begin watching her blood pressures about 1 week ago for an office blood pressure 130s over 80s. Pressures were pretty consistent at home. Patient states last evening she had a pressure 140s over 90s therefore she came into OB triage. Upon reading her prenatals at 34 weeks baby was noted to be breech, 36 weeks and vertex. She states she feels the baby may have flipped to breech again based on movements. Pree labs last evening were normal, PC ratio 0.4 On labs she has a blood type of A+, rubella status immune, hepatitis B surface engine negative, HIV negative, RPR is nonreactive, group beta strep cultures negative. Review of Systems Constitutional: Denies chills, Denies fatigue, Denies fever Ears, nose, mouth and throat: Denies headache Cardiovascular: Reports leg edema Respiratory: Denies dyspnea Gastrointestinal: Denies nausea, Denies vomiting Genitourinary: Reports Past Medical History Past Medical History: GERD/Reflux Additional Past Medical History / Comment(s): occasional gerd, "thyroid storm" 3 yrs ago., missed ab- last menstrual period. 08/24/22. History of Any Multi-Drug Resistant Organisms: None Reported Past Surgical History: No Surgical Hx Reported Additional Past Surgical History / Comment(s): wisdom teeth Past Anesthesia/Blood Transfusion Reactions: Motion Sickness Additional Past Anesthesia/Blood Transfusion Reaction / Comment(s): no surgical hx Past Psychological History: No Psychological Hx Reported Smoking Status: Never smoker Past Alcohol Use History: None Reported Past Drug Use History: None Reported Medications and Allergies Home Medications Medication Instructions Recorded Confirmed Type Vit No.179/Iron/Folic 1 each PO DAILY 11/13/22 09/22/24 History [ Tablet] Aspirin 81 mg PO DAILY 09/22/24 09/22/24 History Levothyroxine Sodium [Synthroid] 25 mcg PO DAILY 09/22/24 09/22/24 History Allergies Allergy/AdvReac Type Severity Reaction Status Date / Time No Known Allergies Allergy Verified 09/22/24 22:28 Exam Osteopathic Statement: *. No significant issues noted on an osteopathic structural exam other than those noted in the History and Physical/Consult. Vital Signs Temp Pulse Resp BP Pulse Ox 09/22/24 22:27 97.8 F 87 18 167/95 97 Intake and Output 09/22/24 09/23/24 09/23/24 22:59 06:59 14:59 Output Total 400 Balance -400 Output: Urine 400 Other: # Voids 1 Weight 104.326 kg 104.326 kg Targeted physical exam is performed this date in general this is a well- nourished well-developed female in no acute distress. She is resting comfortably in bed eating breakfast. heart tones are noted to be category 1 and she is having a regular contractions. Cervical exam last evening by RN revealed she was closed. Results Result Diagrams: 09/23/24 07:24 09/23/24 07:24 Abnormal Lab Results - Last 24 Hours (Table) 09/22/24 09/22/24 09/22/24 Range/Units 22:57 22:57 22:57 RBC 3.38 L (3.80-5.40) m/uL Hgb 11.3 L (11.4-16.0) gm/dL Hct 32.8 L (34.0-46.0) % PT 9.7 L (10.0-12.5) sec Fibrinogen 517 H (200-500) mg/dL Creatinine (0.52-1.04) mg/dL Uric Acid (3.7-7.4) mg/dL Lactate Dehydrogenase (120-246) U/L Urine Appearance Cloudy H (Clear) Urine Ketones (Negative) Urine Blood Small H (Negative) Ur Leukocyte Esterase Small H (Negative) Urine RBC 7 H (0-5) /hpf Ur Squamous Epith Cells 6 H (0-4) /hpf Amorphous Sediment Occasional H (None) /hpf Urine Bacteria Moderate H (None) /hpf Urine Mucus Rare H (None) /hpf 09/22/24 09/23/24 09/23/24 Range/Units 22:57 05:15 07:24 RBC 3.31 L (3.80-5.40) m/uL Hgb 11.0 L (11.4-16.0) gm/dL Hct 32.2 L (34.0-46.0) % PT (10.0-12.5) sec Fibrinogen (200-500) mg/dL Creatinine (0.52-1.04) mg/dL Uric Acid 3.1 L (3.7-7.4) mg/dL Lactate Dehydrogenase (120-246) U/L Urine Appearance (Clear) Urine Ketones 2+ H (Negative) Urine Blood (Negative) Ur Leukocyte Esterase (Negative) Urine RBC (0-5) /hpf Ur Squamous Epith Cells (0-4) /hpf Amorphous Sediment (None) /hpf Urine Bacteria (None) /hpf Urine Mucus (None) /hpf 09/23/24 09/23/24 Range/Units 07:24 07:24 RBC (3.80-5.40) m/uL Hgb (11.4-16.0) gm/dL Hct (34.0-46.0) % PT 9.9 L (10.0-12.5) sec Fibrinogen 515 H (200-500) mg/dL Creatinine 0.48 L (0.52-1.04) mg/dL Uric Acid 3.2 L (3.7-7.4) mg/dL Lactate Dehydrogenase 119 L (120-246) U/L Urine Appearance (Clear) Urine Ketones (Negative) Urine Blood (Negative) Ur Leukocyte Esterase (Negative) Urine RBC (0-5) /hpf Ur Squamous Epith Cells (0-4) /hpf Amorphous Sediment (None) /hpf Urine Bacteria (None) /hpf Urine Mucus (None) /hpf Assessment and Plan (1) 37 weeks gestation of Current Visit: Yes Status: Acute Code(s): Z3A.37 - 37 WEEKS GESTATION OF SNOMED Code(s): 84178647 (2) Gestational hypertension Current Visit: Yes Status: Acute Code(s): O13.9 - GESTATIONAL HTN W/O SIGNIFICANT PROTEINURIA, UNSP TRIMESTER SNOMED Code(s): 56895534 (3) Single umbilical artery Current Visit: Yes Status: Acute Code(s): Q27.0 - CONGENITAL ABSENCE AND HYPOPLASIA OF UMBILICAL ARTERY SNOMED Code(s): 355836069 Plan: 29-year-old G2, P0 at 37 and 5 that presented last evening with home blood pressures of 140s over 90s. Blood pressures have been normal through the evening 106-130s over 70s-80s. Awaiting preeclampsia labs this morning. Discussed blood pressures through the evening, if preeclampsia labs are noted to be normal we will plan discharge home. Discussed presentation. If infant remains breech discussed at 39 weeks. Plan of care reviewed with patient she states understanding.
--- NOTE | 2024-09-23 08:45 | P.MSEPDOC ---
Presenting Problems - Arrival Data Date of Arrival on Unit: 09/22/24 Time of Arrival on Unit: 22:18 Mode of Transport: Ambulatory - Complaint OB-Reason for Admission/Chief Complaint: Elevated Blood Pressure Medical History - Information : 2 Para: 0 Term: 0 : 0 Abortions: Spontaneous or Elective: 0 Number of Living Children: 0 - Gestational Age Gestational Age by NATANAEL (wks/days): 37 Weeks and 5 Days Review of Systems - Review of Systems Constitutional: No problems Breast: No problems ENT: No problems Cardiovascular: No problems Respiratory: No problems Gastrointestinal: No problems Genitourinary: No problems Musculoskeletal: No problems Neurological: No problems Skin: No problems Vital Signs - Temperature Temperature: 97.8 F Temperature Source: Temporal Artery Scan - Pulse Pulse Oximetery Pulse Rate: 93 Pulse Assessment Method: Automatic Cuff - Respirations Respiratory Rate: 14 Oxygen Delivery Method: Room Air - Blood Pressure Right Arm Sitting Blood Pressure: 119/74 Blood Pressure Mean: 89 Blood Pressure Source: Automatic Cuff Medical Screen Scoring - Cervical Exam Dilation (cm): 0 - Assessment - Baby A Baseline FHR: 140 Heart Rate - NICHD Category: Category I (Normal) NST: Reactive Physician Notification - Physician Notified Physician Notified Date: 09/23/24 Physician Notified Time: 01:24 Physician: Kiana Caruso New Order Received: Yes (Admit OBV and repeat preeclampsia labs in a.m.) Maternal Triage Index - Maternal Triage Index Presenting for scheduled procedure w/no complaint: No - Stat/Priority 1 Stat Priority 1: No - Urgent/Priority 2 Urgent Priority 2: Yes Provider Notified: Kiana Caruso Provider Notified Time: 22:44 Criteria Met for Priority 2: Patient came into triage today with complaints of elevated blood pressures. First B/P was 167/95 Disposition - Disposition OB Disposition: Observe I agree with the RN Medical Screening Exam: Yes Case reviewed; plan agreed upon as documented in EMR&OBIX.: Yes Diagnosis: GESTATIONAL HTN W/O SIGNIFICANT PROTEINURIA, THIRD TRIMESTER
--- NOTE | 2024-09-23 09:02 | P.DS ---
Providers Date of admission: 09/23/24 01:37 Expected date of discharge: 09/23/24 Attending physician: Kiana Caruso Primary care physician: Stated None - Discharge Diagnosis(es) (1) 37 weeks gestation of Current Visit: Yes Status: Acute (2) Gestational hypertension Current Visit: Yes Status: Acute (3) Single umbilical artery Current Visit: Yes Status: Acute Hospital Course: 29-year-old G2, P0 at 37-5/7 weeks that presented last evening with complaints of elevated blood pressure at home. Patient had couple elevated pressures which then normalized through the night. Patient's had normal preeclampsia labs x 2. Normal PC ratio. She notes good movement. Patient did have a headache this morning, Tylenol was given and headache improved. Patient notes good movement. She denies contractions. Ultrasound performed vertex presentation confirmed. Patient has been receiving routine care complicated by diagnosis of single umbilical artery. Patient Condition at Discharge: Good Plan - Discharge Summary New Discharge Prescriptions: No Action Vit No.179/Iron/Folic [ Tablet] 1 each PO DAILY Levothyroxine Sodium [Synthroid] 25 mcg PO DAILY Aspirin 81 mg PO DAILY Discharge Medication List Vit No.179/Iron/Folic [ Tablet] 1 each PO DAILY 11/13/22 [Hi story] Aspirin 81 mg PO DAILY 09/22/24 [History] Levothyroxine Sodium [Synthroid] 25 mcg PO DAILY 09/22/24 [History] Follow up Appointment(s)/Referral(s): Jaja Hernandez MD [STAFF PHYSICIAN] - 1 Week Activity/Diet/Wound Care/Special Instructions: Patient is to continue monitor blood pressures at home. For blood pressures greater than 140/90 she is to represent to the hospital. Preeclampsia signs and symptoms are reviewed including headache abdominal pain not associate with baby's movement, or changes in vision. Discharge Disposition: HOME SELF-CARE
== END 2024-09-23 09:43 | disposition home or self-care (01) ==
LOC: FBPOP 22:18 → 4FBP 09-23 01:37
PROVIDERS: ADMIT Obstetrics & Gynecology Obstetrics; ATTEND Obstetrics & Gynecology Obstetrics
DX: O13.3 Gestational [pregnancy-induced] hypertension without significant proteinuria, third trimester (principal); O36.8939 Maternal care for other specified fetal problems, third trimester, other fetus; Q27.0 Congenital absence and hypoplasia of umbilical artery; Z79.82 Long term (current) use of aspirin; Z79.890 Hormone replacement therapy; Z3A.37 37 weeks gestation of pregnancy
CPT/HCPCS: 59025; 99215; 82570 ×2; 84156 ×2; 82565 ×2; 83615 ×2; 84450 ×2; 84460 ×2; 84520 ×2; 84550 ×2; 85025 ×2; 85384 ×2; 85610 ×2; 85730 ×2; 81003; 81001; G0378

== ENCOUNTER 2024-10-06 06:00 | Inpatient (IN) | payer BC ==
--- NOTE | 2024-10-06 07:49 | P.HPOB ---
History of Present Illness H&P Date: 10/06/24 Chief Complaint: Term , two-vessel cord This is a 29 year old 2 para 0010 woman with an estimated due date of 10/09/2024 based on LMP consistent with first trimester ultrasound. She is admitted for caraballo cervical ripening prior to induction of labor. Indication for induction of labor is history of a 2 vessel cord on placenta and recent mild gestational hypertension. She is also known to have hypothyroidism. Obstetric history: First trimester missed AB with D&C. Past medical history: Hypothyroidism and infertility Surgical history: D&C Family history: Noncontributory Social history: , negative for tobacco, drug use Laboratory data: Blood type A+, antibody screen negative, rubella immune, VDRL nonreactive, hepatitis B surface antigen negative, hepatitis C antibodies nonreactive, HIV negative, gonorrhea and clinic cultures negative, group B strep negative, glucose tolerance testing within normal limits Review of Systems All systems: negative Past Medical History Past Medical History: GERD/Reflux Additional Past Medical History / Comment(s): occasional gerd, "thyroid storm" 3 yrs ago., missed ab- last menstrual period. 08/24/22. D& C in 2022 History of Any Multi-Drug Resistant Organisms: None Reported Past Surgical History: No Surgical Hx Reported Additional Past Surgical History / Comment(s): wisdom teeth Past Anesthesia/Blood Transfusion Reactions: Motion Sickness Additional Past Anesthesia/Blood Transfusion Reaction / Comment(s): no surgical hx Past Psychological History: No Psychological Hx Reported Smoking Status: Never smoker Past Alcohol Use History: None Reported Past Drug Use History: None Reported Medications and Allergies Home Medications Medication Instructions Recorded Confirmed Type Vit No.179/Iron/Folic 1 each PO DAILY 11/13/22 10/06/24 History [ Tablet] Aspirin 81 mg PO DAILY 09/22/24 10/06/24 History Levothyroxine Sodium [Synthroid] 25 mcg PO DAILY 09/22/24 10/06/24 History Allergies Allergy/AdvReac Type Severity Reaction Status Date / Time No Known Allergies Allergy Verified 10/06/24 07:17 Exam Vital Signs Temp Pulse Resp BP Pulse Ox 10/06/24 07:17 97.0 F L 108 H 17 138/88 96 Intake and Output 10/05/24 10/06/24 10/06/24 22:59 06:59 14:59 Other: Weight 105.687 kg Assessment and Plan (1) 39 weeks gestation of Current Visit: Yes Status: Acute Code(s): Z3A.39 - 39 WEEKS GESTATION OF SNOMED Code(s): 97441727 (2) Gestational hypertension Current Visit: No Status: Acute Code(s): O13.9 - GESTATIONAL HTN W/O SIGNIFICANT PROTEINURIA, UNSP TRIMESTER SNOMED Code(s): 13306523 (3) Single umbilical artery Current Visit: No Status: Acute Code(s): Q27.0 - CONGENITAL ABSENCE AND HYPOPLASIA OF UMBILICAL ARTERY SNOMED Code(s): 417506237 Plan: 29-year-old 2 para 0010 woman admitted for Dilapan cervical ripening prior to induction of labor secondary to history of 2 vessel cord and gestational hypertension. status is currently reassuring. Risks benefits and alternatives to the procedure have been reviewed with the patient in the office setting prior to admission. She is group B strep negative and Rh+. We will initiate Pitocin and artificial rupture of membranes following adequate cervical ripening.
[2024-10-06 08:54] LABS: Basophils % (A) 0 %; Eosinophils # (A) 0.1 k/uL (0-0.7); Eosinophils % (A) 1 %; HCT 36.5 % (34.0-46.0); HGB 12.2 gm/dL (11.4-16.0); Lymphocytes # (A) 1.7 k/uL (1.0-4.8); Lymphocytes % (A) 18 %; MCH 32.8 pg (25.0-35.0); MCHC 33.5 g/dL (31.0-37.0); MCV 97.8 fL (80.0-100.0); Mean Platelet Volume 7.2; Monocytes # (A) 0.6 k/uL (0-1.0); Monocytes % (A) 6 %; Neutrophils # (A) 6.6 k/uL (1.3-7.7); Neutrophils % (A) 73 %; Platelet Count 213 k/uL (150-450); RBC 3.74 m/uL (3.80-5.40); RDW 13.5 % (11.5-15.5); WBC 9.1 k/uL (3.8-10.6)
[2024-10-06] MEDS ORDERED: TRANEXAMIC 1,000 MG/100ML-NACL 1,000 MG in EMPTY BAG 1 BAG IV PRN (18:07)
[2024-10-06] MEDS ORDERED: CARBOPROST TROMETHAMINE 250 MCG/ML 1 ML AMP IM PRN (18:07)
[2024-10-06] MEDS ORDERED: miSOPROStoL 200 MCG TAB RECTAL PRN (18:07)
[2024-10-06] MEDS ORDERED: LIDOCAINE 0.5% (PF) 5 MG/ML (50 ML SDV) SQ PRN (18:07)
[2024-10-06] MEDS ORDERED: miSOPROStoL 200 MCG TAB PO PRN (18:07)
[2024-10-06] MEDS ORDERED: METHYLERGONOVINE 0.2 MG/ML 1 ML AMP IM PRN (18:07)
[2024-10-06] MEDS ORDERED: OXYTOCIN 10 UNIT/ML 1 ML VIAL IM PRN (18:07)
[2024-10-06] MEDS ORDERED: TERBUTALINE 1 MG/ML VIAL SQ PRN (18:07)
[2024-10-06] MEDS ORDERED: OXYTOCIN 30 UNITS/500 ML NS 30 UNIT in SALINE 1 500ML.BAG IV SCH (18:15)
--- NOTE | 2024-10-07 08:09 | P.PN ---
Progress Note - Text Progress Note Date: 10/07/24 Interval history: Dilapan was removed at approximately 5:30 PM 10/06/24. At that time she was 4 cm dilated, 50% effaced however the presenting part was not well applied at -4 station. Bedside ultrasound confirmed vertex presentation. Artificial rupture of membranes was not undertaken secondary to the applied on the head. Pitocin was initiated. After approximate 6 hours of Pitocin she was irregularly kevin and the decision was made to turn this also that she could get some sleep. Pitocin was reinitiated at 5 AM this morning. Current exam is 4 cm, 50% vertex in the -3 station better applied. Artificial rupture of membranes is undertaken and clear fluid is noted. status is currently reassuring by external monitoring category 1 heart tones. Blood pressures have been within normal range throughout her admission thus far. Assessment: Intrauterine at 39+ weeks gestation with history of 2 vessel cord and mild gestational hypertension. Plan: Pitocin induction of labor per protocol.
[2024-10-07] MEDS: LACTATED RINGERS 1,000 ML IV SCH (09:11)
[2024-10-07] MEDS: NALBUPHINE 10 MG/ML (10 ML MDV) IV PRN (09:11)
[2024-10-07] MEDS ORDERED: SODIUM CHLORIDE 0.9% 250 ML BAG ONE (10:25)
[2024-10-07] MEDS ORDERED: fentaNYL (PF) 50 MCG/ML 5 ML AMP ONE (10:25)
[2024-10-07] MEDS ORDERED: ROPIVACAINE 5 MG/ML 30 ML VIAL ONE (10:25)
[2024-10-07] MEDS ORDERED: ZOLPIDEM 5 MG TAB PO PRN (18:40)
[2024-10-07] MEDS ORDERED: diphenhydrAMINE 25 MG CAP PO PRN (18:40)
[2024-10-07] MEDS ORDERED: SIMETHICONE 80 MG CHEWABLE PO PRN (18:40)
[2024-10-07] MEDS ORDERED: BENZOCAINE/MENTHOL SPRAY 1 GM/SPRAY AEROSOL TOPICAL PRN (18:40)
[2024-10-07] MEDS ORDERED: diphenhydrAMINE 50 MG CAP PO PRN (18:40)
[2024-10-07] MEDS ORDERED: diphenhydrAMINE 50 MG/ML 1 ML VIAL IVP PRN ×2 (18:40)
[2024-10-07] MEDS ORDERED: LANOLIN CREAM 1 GM TUBE TOPICAL PRN (18:40)
[2024-10-07] MEDS ORDERED: HYDROCORTISONE 2.5% RECTAL CREAM 30 GM TUBE RECTAL PRN (18:40)
--- NOTE | 2024-10-07 18:52 | P.PROBDLV ---
Vaginal Delivery Note - . Vaginal Delivery Note: Findinging: male , VTX, BEBO. Wt 8'8oz, 8/9, 2nd degree lacerations. EBL 150ml. 2VC placenta with accentric cord placement. delivery summary: This is a 29-year-old 2 para 0010 woman who is admitted at 39+ weeks gestation for induction of labor secondary to history of 2 vessel cord placenta and mild -induced hypertension. She had an unfavorable cervix therefore was admitted on the morning of 10-29 for Dilapan placement. Rods 5 were placed per protocol and left in place for approximately 10 hours. These were then removed and she was found to be 4 cm dilated however the head was quite ballotable and artificial rupture of membranes could not be undertaken safely at that time. Vertex was confirmed by bedside ultrasound. Pitocin was initiated and continued for approximately 6 hours however she did not enter active labor. This was therefore discontinued and the patient was allowed to rest until this morning. This morning Pitocin was reinitiated She remained 4 cm dilated and artificial rupture of membranes was then undertaken, clear fluid was noted. She then progressed through labor and did receive an epidural anesthetic. She reached complete cervical dilation with category 2 heart tones. With the maternal effort she did push to at which time she was repositioned, prepped and draped in the dorsal modified Rajiv position. With additional maternal effort the head delivered from the left occiput anterior position. The anterior followed by the posterior shoulders were delivered without difficulty and the rest the infant was delivered onto the field. The nose and mouth were bulb suctioned and the infant was placed on the maternal abdomen. The cord was clamped and cut. Apgars were 8 at 1 minute and 9 at 5 minutes and weight was 8 lbs. 8 oz. Secondary perineal laceration was noted. This was infused with lidocaine and repaired with 3-0 Vicryl suture in the usual fashion. Attention was then turned to the placenta. With Pitocin infusion and fundal massage the anterior edge of the placenta didn't deliver however no further. Therefore the anterior edge of the placenta was manually grasped and the placenta was removed intact without difficulty. The uterus was then noted to be firm and at the level of the umbilicus. EBL was approximately 150 mL's. Both mother and were doing well post delivery in the room WERE correct.
[2024-10-07] MEDS: SENNOSIDES-DOCUSATE SODIUM 1 EACH TAB PO SCH (20:40)
[2024-10-07] MEDS: IBUPROFEN 800 MG TAB PO SCH (20:41)
[2024-10-07] MEDS: OXYTOCIN 30 UNITS/500 ML NS 30 UNIT in SALINE 1 500ML.BAG IV SCH (20:42)
[2024-10-07] MEDS: ACETAMINOPHEN TAB 500 MG TAB PO SCH (23:56)
[2024-10-08 05:30] LABS: Basophils % (A) 0 %; Eosinophils % (A) 0 %; HCT 30.4 % (34.0-46.0); HGB 10.7 gm/dL (11.4-16.0); Lymphocytes # (A) 1.4 k/uL (1.0-4.8); Lymphocytes % (A) 10 %; MCH 33.9 pg (25.0-35.0); MCHC 35.2 g/dL (31.0-37.0); MCV 96.2 fL (80.0-100.0); Mean Platelet Volume 7.8; Monocytes # (A) 0.9 k/uL (0-1.0); Monocytes % (A) 7 %; Neutrophils # (A) 11.2 k/uL (1.3-7.7); Neutrophils % (A) 82 %; Platelet Count 249 k/uL (150-450); RBC 3.16 m/uL (3.80-5.40); WBC 13.7 k/uL (3.8-10.6)
--- NOTE | 2024-10-08 09:40 | P.DS ---
Providers Date of admission: 10/06/24 06:53 Expected date of discharge: 10/08/24 Attending physician: Jaja Hernandez Primary care physician: Stated None - Discharge Diagnosis(es) (1) Status post vaginal delivery Current Visit: Yes Status: Acute (2) Obstetrical laceration, second degree Current Visit: Yes Status: Acute (3) 39 weeks gestation of Current Visit: Yes Status: Acute (4) Gestational hypertension Current Visit: No Status: Acute (5) Single umbilical artery Current Visit: No Status: Acute Hospital Course: 29-year-old 2 now para 1-0-1-1 that presented to labor and delivery at 39+ weeks for induction of labor secondary to a history of a two-vessel cord, gestational hypertension. Patient had a noted unfavorable cervix therefore was admitted on the morning of 125 for Dilapan placement. 5 rods were replaced per protocol and left in place for approximately 10 hours. These rods were then removed and patient was found to be 4 cm, the head was noted to be ballotable therefore Pitocin augmentation of labor was initiated. After approximately 6 ho urs she did not enter active labor therefore Pitocin was discontinued and patient was allowed to rest until morning. In the morning the Pitocin was restarted, amniotomy was performed. Patient remained for but became uncomfortable and requested epidural. Epidural was placed without difficulty by the anesthesia department. She did reach complete cervical dilation with category 2 heart tones. With excellent maternal effort she had a normal spontaneous vaginal delivery of a viable male infant, weight of 8 pounds 8 ounces. Second-degree perineal laceration was appreciated and repaired in the usual fashion with 3-0 Vicryl. Patient's course has been uneventful. In this day #1 she is ambulating and voiding without difficulty. She is tolerating a regular diet without nausea or vomiting. Her lochia is noted to be minimal to moderate. She states her pain is well-controlled. She would like discharge home later today at 24 hours. Patient Condition at Discharge: Good Plan - Discharge Summary New Discharge Prescriptions: No Action Vit No.179/Iron/Folic [ Tablet] 1 each PO DAILY Levothyroxine Sodium [Synthroid] 25 mcg PO DAILY RX: Aspirin 81 mg PO DAILY Discharge Medication List Vit No.179/Iron/Folic [ Tablet] 1 each PO DAILY 11/13/22 [History] Levothyroxine Sodium [Synthroid] 25 mcg PO DAILY 09/22/24 [History] RX: Aspirin 81 mg PO DAILY 09/22/24 [History] Follow up Appointment(s)/Referral(s): Jaja Hernandez MD [STAFF PHYSICIAN] - 1 Week Patient Instructions/Handouts: Vaginal Delivery (GEN), Vaginal Delivery (DC) Activity/Diet/Wound Care/Special Instructions: No tub baths or intercourse until 6 weeks . Haqs-[id number]-[id number] ibuprofen 600 mg or 3 tablets every 6 hours as needed for pain. Discharge Disposition: HOME SELF-CARE
[2024-10-09 00:29] VITALS: RESP 15
--- NOTE | 2024-10-09 09:28 | P.PNOBGVD ---
Subjective - Subjective Principal diagnosis: day #2 Interval history: Patient is doing well . She did have to stay an additional day for observation of the per pediatric recommendations. She is feeling well. She is ambulating and voiding without difficulty. No co ncerns with pain. Breast and bottlefeeding. Patient reports: Reports appetite normal, Reports voiding normally, Reports pain well controlled, Reports ambulating normally Mcrae: doing well (Awaiting pediatric recommendations) Objective - Latest Vital Signs Latest vital signs: Vital Signs Temp Pulse Resp BP Pulse Ox 10/09/24 00:15 98.7 F 96 15 135/81 97 10/08/24 16:00 98.8 F 83 14 118/78 Intake and Output 10/08/24 10/09/24 10/09/24 22:59 06:59 14:59 Other: # Voids 2 1 - Exam Extremities: Present: normal, edema Abdomen: Present: normal appearance, soft Uterus: Present: normal, firm Assessment and Plan (1) Status post vaginal delivery Current Visit: Yes Status: Acute Code(s): FPY7558 - SNOMED Code(s): 950437674 (2) Obstetrical laceration, second degree Current Visit: Yes Status: Acute Code(s): O70.1 - SECOND DEGREE PERINEAL LACERATION DURING DELIVERY SNOMED Code(s): 2980669 (3) 39 weeks gestation of Current Visit: Yes Status: Acute Code(s): Z3A.39 - 39 WEEKS GESTATION OF SNOMED Code(s): 38751664 (4) Gestational hypertension Current Visit: No Status: Acute Code(s): O13.9 - GESTATIONAL HTN W/O SIGNIFICANT PROTEINURIA, UNSP TRIMESTER SNOMED Code(s): 80165156 (5) Single umbilical artery Current Visit: No Status: Acute Code(s): Q27.0 - CONGENITAL ABSENCE AND HYPOPLASIA OF UMBILICAL ARTERY SNOMED Code(s): 314331416 Plan: 29-year-old G 2 now para 1-0-1-1 status postnormal spontaneous vaginal delivery. Patient is doing well . Routine instructions are reviewed. Plan discharge home later today.
[2024-10-09 09:29] VITALS: BP 133/87; PULSE 94; TEMP 97.6
== END 2024-10-09 12:30 | disposition home or self-care (01) | DRG 807 ==
LOC: 4FBP 06:53 → UNDODISIN 15:25
PROVIDERS: ADMIT Obstetrics & Gynecology; ATTEND Obstetrics & Gynecology
PROC: 0KQM0ZZ Repair Perineum Muscle, Open Approach (ICD-10-PCS; principal; 2024-10-07)
PROC: 10E0XZZ Delivery of Products of Conception, External Approach (ICD-10-PCS; principal; 2024-10-07)
PROC: 3E033VJ Introduction of Other Hormone into Peripheral Vein, Percutaneous Approach (ICD-10-PCS; principal; 2024-10-07)
PROC: 3E0P7VZ Introduction of Hormone into Female Reproductive, Via Natural or Artificial Opening (ICD-10-PCS; principal; 2024-10-07)
PROC: 10907ZC Drainage of Amniotic Fluid, Therapeutic from Products of Conception, Via Natural or Artificial Opening (ICD-10-PCS; principal; 2024-10-07)
DX: O69.89X0 Labor and delivery complicated by other cord complications, not applicable or unspecified (principal); Z37.0 Single live birth; E03.9 Hypothyroidism, unspecified; O70.1 Second degree perineal laceration during delivery; O13.4 Gestational [pregnancy-induced] hypertension without significant proteinuria, complicating childbirth; O99.284 Endocrine, nutritional and metabolic diseases complicating childbirth; Z3A.39 39 weeks gestation of pregnancy; Z79.82 Long term (current) use of aspirin; Z79.890 Hormone replacement therapy
CPT/HCPCS: 59200; 85025; 86850; 86900; 86901; 88307

== ENCOUNTER 2025-01-07 15:49 | Emergency (ER) | payer BC ==
[2025-01-07 15:54] VITALS: TEMP 98
[2025-01-07] MEDS: KETOROLAC 15 MG/ML 1 ML VIAL IVP STA (16:26)
[2025-01-07] MEDS: SODIUM CHLORIDE 0.9% 1,000 ML IV ONE (16:27)
[2025-01-07 16:28] LABS: Basophils # (A) 0.1 k/uL (0-0.2); Basophils % (A) 1 %; Eosinophils # (A) 0.5 k/uL (0-0.7); Eosinophils % (A) 4 %; HCT 36.8 % (34.0-46.0); Lymphocytes # (A) 1.7 k/uL (1.0-4.8); Lymphocytes % (A) 14 %; MCH 30.3 pg (25.0-35.0); MCHC 32.5 g/dL (31.0-37.0); MCV 93.1 fL (80.0-100.0); Mean Platelet Volume 6.8; Monocytes # (A) 0.9 k/uL (0-1.0); Monocytes % (A) 7 %; Neutrophils # (A) 9.2 k/uL (1.3-7.7); Neutrophils % (A) 74 %; Platelet Count 355 k/uL (150-450); RBC 3.95 m/uL (3.80-5.40); RDW 12.9 % (11.5-15.5); WBC 12.5 k/uL (3.8-10.6)
[2025-01-07 16:37] LABS: ALT 42 U/L (4-34); AST 24 U/L (14-36); African American GFR (CKD) >90 (>60 ml/min/1.73 sqM); Albumin 4.5 g/dL (3.5-5.0); Alkaline Phosphatase 80 U/L (38-126); Anion Gap 11 mmol/L; Blood Urea Nitrogen 15 mg/dL (7-17); Calcium 10.4 mg/dL (8.4-10.2); Carbon Dioxide 26 mmol/L (22-30); Chloride 104 mmol/L (98-107); Glucose 96 mg/dL (74-99); Non-African American GFR(CKD) >90 (>60 ml/min/1.73 sqM); Potassium 3.9 mmol/L (3.5-5.1); Sodium 141 mmol/L (137-145); Total Bilirubin 0.5 mg/dL (0.2-1.3); Total Protein 7.8 g/dL (6.3-8.2)
[2025-01-07] MEDS: MORPHINE SULFATE 4 MG/ML SYRINGE IVP STA (16:58)
--- NOTE | 2025-01-07 17:17 | ED ---
Chest Pain HPI - General Chief Complaint: Chest Pain Stated Complaint: Irritation in breast Time Seen by Provider: 01/07/25 16:06 Source: patient Mode of arrival: ambulatory Limitations: no limitations - History of Present Illness Initial Comments: 29-year-old female presenting with chief complaint of right breast pain. Patient is currently breast-feeding. She had her baby back in October. She reports that on Thursday she was having pain redness and swelling to the breast. She was seen by urgent care and also had an antibiotic called in by her [employer] ATTENDANT. She has been taking dicloxacillin as prescribed. While she reports that some of the redness and swelling has calm down around the breast there is a particular region that is still painful and quite swollen. No fever. No vomiting. No headache. She has been trying to excessively pump and use a heating pad, she is also been taking Motrin and Tylenol - Related Data Home Medications Medication Instructions Recorded Confirmed Vit No.179/Iron/Folic 1 each PO DAILY 11/13/22 10/06/24 [ Tablet] Aspirin 81 mg PO DAILY 09/22/24 10/06/24 Levothyroxine Sodium [Synthroid] 25 mcg PO DAILY 09/22/24 10/06/24 Allergies Allergy/AdvReac Type Severity Reaction Status Date / Time No Known Allergies Allergy Verified 01/07/25 15:55 Review of Systems ROS Statement: Those systems with pertinent positive or pertinent negative responses have been documented in the HPI. ROS Other: All systems not noted in ROS Statement are negative. Past Medical History Past Medical History: GERD/Reflux Additional Past Medical History / Comment(s): occasional gerd, "thyroid storm" 3 yrs ago., missed ab- last menstrual period. 08/24/22. D& C in 2022 History of Any Multi-Drug Resistant Organisms: None Reported Past Surgical History: No Surgical Hx Reported Additional Past Surgical History / Comment(s): wisdom teeth Past Anesthesia/Blood Transfusion Reactions: Motion Sickness Additional Past Anesthesia/Blood Transfusion Reaction / Comment(s): no surgical hx Past Psychological History: No Psychological Hx Reported Smoking Status: Never smoker Past Alcohol Use History: None Reported Past Drug Use History: None Reported General Exam Limitations: no limitations General appearance: alert, in no apparent distress Head exam: Present: atraumatic, normocephalic, normal inspection Eye exam: Present: normal appearance, EOMI Neck exam: Present: normal inspection. Absent: meningismus Respiratory exam: Absent: respiratory distress Cardiovascular Exam: Present: regular rate Neurological exam: Present: alert, oriented X3 Psychiatric exam: Present: normal affect, normal mood Expanded Type of lesion: Present: abscess (Breast abscess about 2 cm superior to the nipple) Course Vital Signs 01/07/25 15:52 Temperature 98.0 F Pulse Rate 79 Respiratory 17 Rate Blood Pressure 168/98 O2 Sat by Pulse 99 Oximetry Procedures - Incision & Drainage Consent Obtained: verbal consent Site: other (Right breast) Scalpel Used: #11 Ultrasound used: No Needle Aspiration Performed?: No Irrigation Performed?: No I&D Drainage Obtained: Pus, Blood Insertion of drain: No Patient Tolerated Procedure: well Chest Pain MDM - MDM Was pt. sent in by a medical professional or institution ([facility] Garcia, [facility], urgent care, hospital, or [facility]...) When possible be specific @ -No Did you speak to anyone other than the patient for history (EMS, parent, family, police, friend...)? What history was obtained from this source @ -No Did you review nursing and triage notes (agree or disagree)? Why? @ -I reviewed and agree with nursing and triage notes Were old charts reviewed (outside hosp., previous admission, EMS record, old EKG, old radiological studies, urgent care reports/EKG's, [facility] records)? Report findings @ -No old charts were reviewed Differential Diagnosis (chest pain, altered mental status, abdominal pain women, abdominal pain men, vaginal bleeding, weakness, fever, dyspnea, syncope, headache, dizziness, GI bleed, back pain, seizure, CVA, palpatations, mental health, musculoskeletal)? @ -Differential includes breast abscess, mastitis, allergic reaction, not an all-inclusive list EKG interpreted by me (3pts min.). @ -As above X-rays interpreted by me (1pt min.). @ -None done CT interpreted by me (1pt min.). @ -None done U/S interpreted by me (1pt. min.). @ -None done What testing was considered but not performed or refused? (CT, X-rays, U/S, labs)? Why? @ -None What meds were considered but not given or refused? Why? @ -None Did you discuss the management of the patient with other professionals (professionals i.e. , PA, [employer], lab, RT, psych nurse, social insurance administrator, toll line inspector, teacher, administrative hearing officer, case coordinator)? Give summary @ -No Was smoking cessation discussed for >3mins.? @ -No Was critical care preformed (if so, how long)? @ -No Were there social determinants of health that impacted care today? How? (Homelessness, low income, unemployed, alcoholism, drug addiction, transportation, low edu. Level, literacy, decrease access to med. care, [facility], rehab)? @ -No Was there de-escalation of care discussed even if they declined (Discuss DNR or withdrawal of care, Hospice)? DNR status @ -No What co-morbidities impacted this encounter? (DM, HTN, Smoking, COPD, CAD, Cancer, CVA, ARF, Chemo, Hep., AIDS, mental health diagnosis, sleep apnea, morbid obesity)? @ -None Was patient admitted / discharged? Hospital course, mention meds given and route, prescriptions, significant lab abnormalities, going to OR and other pertinent info. @ -29-year-old female presenting with chief complaint of painful bump to the right breast. Patient is currently breast-feeding and taking dicloxacillin for mastitis. On examination there is a fluctuant abscess about 2 cm superior to the nipple. White count 12.5. Incision and drainage was performed. Patient is instructed to continue taking her antibiotics. Patient required Toradol morphine for pain control. Advised to "pump and dump" for the next 1 to 3 hours. Educated on wound care and signs of worsening infection. Educated on breast-feeding and pumping while the abscess is healing. Follow-up with [employer] ATTENDANT. Follow-up with PCP. Report back to ER with any new or worsening symptoms. Discussed return parameters and answered all questions. Patient conveyed verbal understanding and agreed to the plan. I discussed this case in detail with my attending Dr. Price Undiagnosed new problem with uncertain prognosis? @ - No Drug Therapy requiring intensive monitoring for toxicity (Heparin, Nitro, Insulin, Cardizem)? @ -No Were any procedures done? @ -No Diagnosis/symptom? @ -Breast abscess Acute, or Chronic, or Acute on Chronic? @ -Acute Uncomplicated (without systemic symptoms) or Complicated (systemic symptoms)? @ -Uncomplicated Side effects of treatment? @ -No Exacerbation, Progression, or Severe Exacerbation? @ -No Poses a threat to life or bodily function? How? (Chest pain, [place], DC, pneumonia, PE, COPD, DKA, ARF, appy, cholecystitis, CVA, Diverticulitis, Homicidal, Suicidal, threat to staff... and all critical care pts) @ -Potential with any infection, seemingly low likelihood at this time Disposition Clinical Impression: Breast abscess Disposition: HOME SELF-CARE Condition: Good Instructions (If sedation given, give patient instructions): Abscess Incision and Drainage (DC) Additional Instructions: Follow-up with your [employer] ATTENDANT. Report back to ER with any new or worsening symptoms. After receiving morphine you should "pump and dump" for the next 1 to 3 hours. The largest concern is that morphine may cause increased sleepiness and drowsiness in your . You may pump from the right breast but do not breast-feed until you have finished seeing any pus draining from the site. You should expect to see drainage for the next 1 to 2 days. Use warm compresses to help bring pus to the surface and gently massage the area to help express the pus. Is patient prescribed a controlled substance at d/c from ED?: No Referrals: Bolivar Leal DO [Primary Care Provider] - 1-2 days Jaja Hernandez MD [STAFF PHYSICIAN] - 1-2 days Time of Disposition: 17:17
[2025-01-07 17:42] VITALS: BP 154/105; PULSE 76; RESP 18
== END 2025-01-07 17:43 | disposition home or self-care (01) ==
LOC: EC 15:49
DX: N61.1 Abscess of the breast and nipple (principal)
CPT/HCPCS: 36415; 80053; 83605; 85025; 10060; 99285; 96374; 96375; 96361; J2270; J1885

== ENCOUNTER → 2025-01-19 | Outpatient (CLI) | payer BC ==
[2025-01-19 08:46] VITALS: BP 135/99; PULSE 97; RESP 17; TEMP 98.1
--- NOTE | 2025-01-19 09:18 | P.GSCN ---
History of Present Illness Consult date: 01/19/25 Reason for Consult: breast abcess Requesting physician: Jaja Hernandez History of present illness: Sobeida is a 29 year old female with a complaint of a recurrent right breast abscess. She has been breast feeding for 3 1/2 months, her son was born October 07, 2024. She stopped breast feeding 4 days ago. She states about 6 weeks ago she had a clogged duct on the right side. She was using an ice pack, and at that time could not wear a bra. She wore a bra and developed another clogged duct. She was seen at urgent care two weeks ago and started on doxycline and is still on this. She was told to keep pumping and put heat on it, she then devoloped a lump near the aerola and developed a head at that side. She had it drained in ER on 01-14-25. They did not do wound cultures. She does not have any fever or chills. Pain in her breast has resolved. She is using ibuprofen and Tylenol. It is better since she stopped breast feeding. She saw Dr. Katz last week and was told to follow up here. The area is improving since stoped breast feeding. It is constatnly leaking milk from both sides. Caffeine: none nicotine: none chocolate: none BCP: none fertility treatments Family History: maternal grandfather: bladder cancer paternal grandfather: stomach cancer with bone mets paternal great grandfather: lung cancer smoker Hormonal History: menarche: 10 M1, age at first life : 29, breat fed: yes periods irregular 1 adopted son Surgical History: D&C miscarriage wisdom teeth Medical History: on synthroid for fertility treatment Social History: nicotine: none alcohol: none drugs: none Review of Systems - Constitutional Denies fever, Denies weight loss - EENT Eyes: denies blurred vision Ears: deny: decreased hearing, tinnitus Ears, nose, mouth and throat: Denies dysphagia - Breasts bilateral: as per HPI - Respiratory Denies cough, Denies 7 - Gastrointestinal Reports as per HPI - Genitourinary Genitourinary: Denies dysuria, Denies hematuria Menstruation: Reports as per HPI - Musculoskeletal Reports as per HPI - Integumentary Denies rash, Denies unusual bruising - Neurological Denies headaches, Denies syncope - Psychiatric Reports as per HPI - Endocrine Reports as per HPI - Hematologic/Lymphatic Denies easy bleeding, Denies easy bruising - Allergic/Immunologic Reports as per HPI Past Medical History Past Medical History: GERD/Reflux Additional Past Medical History / Comment(s): occasional gerd, "thyroid storm" 3 yrs ago., missed ab- last menstrual period. 08/24/22. D& C in 2022 History of Any Multi-Drug Resistant Organisms: None Reported Past Surgical History: No Surgical Hx Reported Additional Past Surgical History / Comment(s): wisdom teeth Past Anesthesia/Blood Transfusion Reactions: Motion Sickness Additional Past Anesthesia/Blood Transfusion Reaction / Comm: no surgical hx Past Psychological History: No Psychological Hx Reported Smoking Status: Never smoker Past Alcohol Use History: None Reported Past Drug Use History: None Reported Medications and Allergies Home Medications Medication Instructions Recorded Confirmed Type Vit No.179/Iron/Folic 1 each PO DAILY 11/13/22 01/19/25 History [ Tablet] Levothyroxine Sodium [Synthroid] 25 mcg PO DAILY 09/22/24 01/19/25 History Dicloxacillin [Dynapen] 500 mg PO DIRECTED 01/19/25 01/19/25 History Allergies Allergy/AdvReac Type Severity Reaction Status Date / Time No Known Allergies Allergy Verified 01/19/25 08:43 Surgical - Exam Vital Signs Temp Pulse Resp BP Pulse Ox 98.1 F 97 17 135/99 97 01/19/25 08:44 01/19/25 08:44 01/19/25 08:44 01/19/25 08:44 01/19/25 08:44 - General no distress - Eyes normal ocular movement - Neck trachea midline - Respiratory normal respiratory effort, clear to auscultation - Cardiovascular Rhythm: regular Heart Sounds: normal: S1, S2 - Abdomen Abdomen: soft, non tender, no guarding, no rigid, no rebound - Integumentary normal turgor - Neurologic no disoriented, no combative - Musculoskeletal normal gait - Psychiatric oriented to time, oriented to person, oriented to place, speech is normal, memory intact Breast Exam: bra: 34B Inspection: Bilateral engorged breast Palpation: Right breast: Full breast, no discrete dominant masses or nodules of concern, puncture site with drainage of an abscess was performed is evaluated there is some milky discharge from this but no purulence Right axilla: No adenopathy of concern Left breast: Engorged breast related to breast-feeding, no discrete dominant masses or nodules of concern Left axilla: No adenopathy of concern Patient has milky discharge from bilateral nipple complexes, no erythema on today's examination Results Patient has not had any radiographic studies done Assessment and Plan Assessment: Impression: Resolving mastitis/periareolar abscess right breast Patient on antibiotic dicloxacillin nothing noted on today's examination which would warrant interventional surgical drainage Plan: Patient has stopped breast-feeding Of antibiotics At this time patient does not have fever or chills and the discomfort in the breast is improved Patient is going to have a bilateral breast ultrasound in 6 weeks and will follow-up at that time folow up sooner any concerns CC: Dr. Katz
== END ==
LOC: WWCWWP 08:20
PROVIDERS: ATTEND Surgery
DX: N61.1 Abscess of the breast and nipple (principal)

== ENCOUNTER → 2025-04-04 | Outpatient (CLI) | payer BC ==
--- NOTE | 2025-04-04 16:46 | USB ---
Reason for Exam: Follow-up at short interval from prior study. Technique: Method: Targeted. Doppler: Color. Patient Position: Supine. Findings: The periareolar of the right breast, the axilla of the right breast and the retroareolar of the right breast were scanned. Targeted ultrasound subareolar and periareolar region right breast including scanning of the axilla. There is a nodular area just deep to the nipple 9:00 position measuring 1.2 cm. No associated vascularity. The small loculated fluid present here one month ago appears to have resolved. Exact etiology is unclear, possible development of scarring versus residual inflammatory thickening. Additional follow-up to assess for involution and to exclude a focal lesion. No other solid or cystic lesion or axillary adenopathy. Overall Assessment: Probably benign, BI-RAD 3 Management: Diagnostic Breast Ultrasound of the right breast in 3 months. Further clinical correlation to exclude any residual infection. Follow-up to exclude a small underlying nodule/mass. Results were given to the patient verbally at the time of exam. [facility], , 04/04/2025 4:40 PM. Electronically signed and approved by: Keely Cotton M.D. Radiologist
== END | disposition home or self-care (01) ==
LOC: RADUSWWP 14:57
PROVIDERS: ATTEND Surgery
DX: N60.02 Solitary cyst of left breast (principal)